=== PATIENT | female | born 1945 | race Caucasian/White ===

== ENCOUNTER 2017-08-15 20:46 | Inpatient (IN) | payer MEDICARE, OTHER ==
[2017-08-15 21:36] LABS: BASO % 0.2 % (0.0-1.0); HEMATOCRIT 36.3 % (36.0-47.0); HEMOGLOBIN 11.8 g/dl (12.0-16.0); IMMATURE GRANULOCYTE # 0.1 10^3/uL (0-0); IMMATURE GRANULOCYTE % 0.5 % (0-0); LYMPH # 0.4 10^3/uL (1.5-4.5); LYMPH % 2.1 % (24.0-44.0); MEAN CORPUSCULAR HEMOGLOBIN 29.1 pg (27.0-33.0); MEAN CORPUSCULAR HGB CONC 32.5 g/dl (32.0-36.5); MEAN CORPUSCULAR VOLUME 89.6 fl (80.0-96.0); MONO # 0.9 10^3/uL (0.0-0.8); MONO % 4.6 % (0.0-5.0); NEUTROPHILS # 17.5 10^3/uL (1.8-7.7); NEUTROPHILS % 92.6 % (36.0-66.0); PLATELET COUNT, AUTOMATED 337 10^3/uL (150-450); RED BLOOD COUNT 4.05 10^6/uL (4.00-5.40); RED CELL DISTRIBUTION WIDTH 13.3 % (11.5-14.5); WHITE BLOOD COUNT 18.9 10^3/uL (4.0-10.0)
[2017-08-15 21:43] LABS: ANION GAP 11 MEQ/L (8-16); BLOOD UREA NITROGEN 24 MG/DL (7-18); CALCIUM LEVEL 8.7 MG/DL (8.8-10.2); CARBON DIOXIDE LEVEL 24 MEQ/L (21-32); CHLORIDE LEVEL 104 MEQ/L (98-107); CPK CREATINE PHOSPHOKINASE 196 U/L (26-192); CREATININE FOR GFR 1.16 MG/DL (0.55-1.02); GLUCOSE, FASTING 118 MG/DL (83-110); SODIUM LEVEL 139 MEQ/L (136-145); T UPTAKE 37 % (30-39); THYROXINE (T4) 10.9 UG/DL (4.5-12.0)
[2017-08-15 21:48] LABS: CK-MB VALUE MASS 6.5 NG/ML (0.0-3.6); MB/CK RELATIVE INDEX 3.31 (< OR =4); NT-PRO BNP 7436 PG/ML (<125)
[2017-08-15 22:14] LABS: ABG BASE EXCESS -2.9 (-2.0-2.0); ABG HCO3 20.9 MEQ/L (22.0-26.0); ABG O2 SATURATION 90.6 % (95.0-99.0); ABG PARTIAL PRESSURE CO2 33.3 mmHg (35.0-45.0); ABG PARTIAL PRESSURE O2 61.4 mmHg (75.0-100.0); ABG STANDARD HCO3 21.9 MEQ/L (22.0-26.0); ABG TOTAL CO2 21.9 MEQ/L (23.0-31.0); ABG pH (ARTERIAL) 7.416 UNITS (7.350-7.450)
[2017-08-15] MEDS: AZITHROMYCIN INJ 500 MG, VIAL MATE ADAPTER 1 EACH in D5W 250 ML IV (22:15)
[2017-08-15] MEDS: DILUENT IV (22:15)
[2017-08-15] MEDS: CEFUROXIME SODIUM IV (22:15)
[2017-08-15 22:40] LABS: LACTIC ACID SEPSIS PROTOCOL 2.7 MMOL/L (0.4-2.0)
[2017-08-16] MEDS: NS 1,000 ML IV ×2 (00:22→09:09)
[2017-08-16] MEDS: ACETAMINOPHEN TAB 650MG DOSE (2X325MG) PO (00:39)
[2017-08-16] MEDS: CEFTRIAXONE SOD 1 GM in APPROPRIATE DILUENT 1 EA IV (05:17)
[2017-08-16 06:35] LABS: BASO # 0.1 10^3/uL (0.0-0.2); BASO % 0.6 % (0.0-1.0); EOS # 0.1 10^3/uL (0.0-0.50); EOS % 0.9 % (0.0-3.0); HEMATOCRIT 29.9 % (36.0-47.0); IMMATURE GRANULOCYTE % 0.4 % (0-0); LYMPH # 1.2 10^3/uL (1.5-4.5); LYMPH % 14.4 % (24.0-44.0); MEAN CORPUSCULAR HEMOGLOBIN 29.6 pg (27.0-33.0); MEAN CORPUSCULAR HGB CONC 33.4 g/dl (32.0-36.5); MEAN CORPUSCULAR VOLUME 88.5 fl (80.0-96.0); MONO # 0.8 10^3/uL (0.0-0.8); MONO % 9.3 % (0.0-5.0); NEUTROPHILS # 6.1 10^3/uL (1.8-7.7); NEUTROPHILS % 74.4 % (36.0-66.0); PLATELET COUNT, AUTOMATED 266 10^3/uL (150-450); RED BLOOD COUNT 3.38 10^6/uL (4.00-5.40); RED CELL DISTRIBUTION WIDTH 13.3 % (11.5-14.5); WHITE BLOOD COUNT 8.2 10^3/uL (4.0-10.0)
[2017-08-16 06:54] LABS: ANION GAP 7 MEQ/L (8-16); BLOOD UREA NITROGEN 22 MG/DL (7-18); CALCIUM LEVEL 8.4 MG/DL (8.8-10.2); CARBON DIOXIDE LEVEL 25 MEQ/L (21-32); CHLORIDE LEVEL 108 MEQ/L (98-107); CREATININE FOR GFR 0.86 MG/DL (0.55-1.02); GLOMERULAR FILTRATION RATE > 60.0 (>39); GLUCOSE, FASTING 77 MG/DL (83-110); SODIUM LEVEL 140 MEQ/L (136-145)
[2017-08-16] MEDS: ENOXAPARIN 40 MG/0.4 ML SYRINGE (J1650) SC (09:08)
[2017-08-16] MEDS: MAG SULF 1GM/100ML (MAG RUN) 1 GM in APPROPRIATE DILUENT 1 EA IV (18:30)
[2017-08-16] MEDS ORDERED: MAGNESIUM SULFATE 1 GM/100 ML D5W BAG (10MG/ML) (J3475) As Ordered (18:30)
[2017-08-16] MEDS ORDERED: FUROSEMIDE 20 MG/2 ML VIAL (J1940) As Ordered (18:30)
[2017-08-16 18:45] LABS: ABG BASE EXCESS -7.9 (-2.0-2.0); ABG HCO3 21.6 MEQ/L (22.0-26.0); ABG O2 SATURATION 84.8 % (95.0-99.0); ABG PARTIAL PRESSURE O2 65.5 mmHg (75.0-100.0); ABG STANDARD HCO3 17.9 MEQ/L (22.0-26.0); ABG TOTAL CO2 23.5 MEQ/L (23.0-31.0)
[2017-08-16] MEDS: FUROSEMIDE 40 MG/4 ML VIAL (J1940) IV ×3 (18:45→23:52)
[2017-08-16] MEDS: NITROGLYCERIN 2% OINT 1 GM *U/D* PKT TOP (18:45)
[2017-08-16 18:47] LABS: ABG PARTIAL PRESSURE CO2 62.6 mmHg (35.0-45.0); ABG pH (ARTERIAL) 7.156 UNITS (7.350-7.450)
[2017-08-16] MEDS ORDERED: NITROGLYCERIN 2% OINT 1 GM *U/D* PKT As Ordered (18:50)
[2017-08-16 19:02] LABS: BASO # 0.1 10^3/uL (0.0-0.2); BASO % 0.8 % (0.0-1.0); EOS # 0.1 10^3/uL (0.0-0.50); EOS % 1.2 % (0.0-3.0); HEMATOCRIT 40.4 % (36.0-47.0); IMMATURE GRANULOCYTE % 0.3 % (0-0); LYMPH # 2.8 10^3/uL (1.5-4.5); LYMPH % 24.5 % (24.0-44.0); MEAN CORPUSCULAR HEMOGLOBIN 29.3 pg (27.0-33.0); MEAN CORPUSCULAR HGB CONC 31.4 g/dl (32.0-36.5); MEAN CORPUSCULAR VOLUME 93.1 fl (80.0-96.0); MONO # 1.1 10^3/uL (0.0-0.8); MONO % 9.7 % (0.0-5.0); NEUTROPHILS # 7.3 10^3/uL (1.8-7.7); NEUTROPHILS % 63.5 % (36.0-66.0); PLATELET COUNT, AUTOMATED 357 10^3/uL (150-450); RED BLOOD COUNT 4.34 10^6/uL (4.00-5.40); RED CELL DISTRIBUTION WIDTH 13.6 % (11.5-14.5); WHITE BLOOD COUNT 11.5 10^3/uL (4.0-10.0)
[2017-08-16 19:08] LABS: HEMOGLOBIN 12.7 g/dl (12.0-16.0)
[2017-08-16 19:30] LABS: ESTIMATED AVERAGE GLUCOSE 131 MG/DL (60-110); HEMOGLOBIN A1c 6.2 %
[2017-08-16 19:37] LABS: MAGNESIUM LEVEL 2.6 MG/DL (1.8-2.4)
[2017-08-16 19:37] LABS: C REACTIVE PROTEIN QUANTITATIV 1.13 MG/DL (0.00-0.30)
[2017-08-16 19:42] LABS: ALBUMIN 3.4 GM/DL (3.2-5.2); ALBUMIN/GLOBULIN RATIO 0.74 (1.00-1.93); ALKALINE PHOSPHATASE 119 U/L (45-117); ALT/SGPT 48 U/L (12-78); ANION GAP 9 MEQ/L (8-16); AST/SGOT 50 U/L (7-37); BILIRUBIN,TOTAL 0.3 MG/DL (0.2-1.0); BLOOD UREA NITROGEN 24 MG/DL (7-18); CALCIUM LEVEL 8.5 MG/DL (8.8-10.2); CARBON DIOXIDE LEVEL 24 MEQ/L (21-32); CHLORIDE LEVEL 108 MEQ/L (98-107); CK-MB VALUE MASS 4.9 NG/ML (0.0-3.6); CPK CREATINE PHOSPHOKINASE 229 U/L (26-192); CREATININE FOR GFR 1.28 MG/DL (0.55-1.02); GLOMERULAR FILTRATION RATE 43.8 (>39); GLUCOSE, FASTING 231 MG/DL (83-110); MB/CK RELATIVE INDEX 2.13 (< OR =4); POTASSIUM SERUM 4.4 MEQ/L (3.5-5.1); SODIUM LEVEL 141 MEQ/L (136-145); TROPONIN I 0.07 NG/ML (< 0.10)
[2017-08-16 20:08] LABS: BEDSIDE GLUCOSE 204 MG/DL (83-110)
[2017-08-16] MEDS: ETHANOL ALCOHOL 98% INJ 5ML (DEHYDRATED) NEB (20:10)
[2017-08-16 20:30] LABS: ABG BASE EXCESS -3.3 (-2.0-2.0); ABG O2 SATURATION 93.7 % (95.0-99.0); ABG PARTIAL PRESSURE CO2 40.3 mmHg (35.0-45.0); ABG PARTIAL PRESSURE O2 73.9 mmHg (75.0-100.0); ABG STANDARD HCO3 21.6 MEQ/L (22.0-26.0); ABG TOTAL CO2 23.2 MEQ/L (23.0-31.0); ABG pH (ARTERIAL) 7.354 UNITS (7.350-7.450)
[2017-08-16 20:33] LABS: NT-PRO BNP 11467 PG/ML (<125)
[2017-08-16 23:38] LABS: CK-MB VALUE MASS 3.9 NG/ML (0.0-3.6); CPK CREATINE PHOSPHOKINASE 198 U/L (26-192); MB/CK RELATIVE INDEX 1.96 (< OR =4); TROPONIN I 0.09 NG/ML (< 0.10)
[2017-08-16] MEDS: AZITHROMYCIN INJ 500 MG, VIAL MATE ADAPTER 1 EACH in D5W 250 ML IV (23:52)
[2017-08-17] MEDS: FUROSEMIDE 40 MG/4 ML VIAL (J1940) IV ×3 (04:00→16:00)
[2017-08-17 04:30] LABS: BASO % 0.4 % (0.0-1.0); EOS % 0.1 % (0.0-3.0); HEMATOCRIT 35.7 % (36.0-47.0); HEMOGLOBIN 11.8 g/dl (12.0-16.0); IMMATURE GRANULOCYTE % 0.3 % (0-0); LYMPH # 0.5 10^3/uL (1.5-4.5); LYMPH % 5.1 % (24.0-44.0); MEAN CORPUSCULAR HEMOGLOBIN 29.3 pg (27.0-33.0); MEAN CORPUSCULAR HGB CONC 33.1 g/dl (32.0-36.5); MEAN CORPUSCULAR VOLUME 88.6 fl (80.0-96.0); MONO # 0.6 10^3/uL (0.0-0.8); MONO % 6.3 % (0.0-5.0); NEUTROPHILS # 8.3 10^3/uL (1.8-7.7); NEUTROPHILS % 87.8 % (36.0-66.0); PLATELET COUNT, AUTOMATED 315 10^3/uL (150-450); RED BLOOD COUNT 4.03 10^6/uL (4.00-5.40); RED CELL DISTRIBUTION WIDTH 13.3 % (11.5-14.5); WHITE BLOOD COUNT 9.4 10^3/uL (4.0-10.0)
[2017-08-17 04:50] LABS: ALBUMIN 3.2 GM/DL (3.2-5.2); ALBUMIN/GLOBULIN RATIO 0.73 (1.00-1.93); ALKALINE PHOSPHATASE 105 U/L (45-117); ALT/SGPT 58 U/L (12-78); ANION GAP 9 MEQ/L (8-16); AST/SGOT 53 U/L (7-37); BILIRUBIN,TOTAL 0.4 MG/DL (0.2-1.0); BLOOD UREA NITROGEN 22 MG/DL (7-18); CALCIUM LEVEL 8.2 MG/DL (8.8-10.2); CARBON DIOXIDE LEVEL 28 MEQ/L (21-32); CHLORIDE LEVEL 104 MEQ/L (98-107); CHOLESTEROL LEVEL 177 MG/DL (< 200); CHOLESTEROL LEVEL 177 MG/DL (<200); CHOLESTEROL RISK RATIO 1.718 (<5); CPK CREATINE PHOSPHOKINASE 271 U/L (26-192); CREATININE FOR GFR 1.09 MG/DL (0.55-1.02); GLOMERULAR FILTRATION RATE 52.7 (>39); GLUCOSE, FASTING 113 MG/DL (83-110); HDL CHOLESTEROL 103 MG/DL (>40); LDH LACTATE DEHYDROGENASE 201 U/L (84-246); NON-HDL-C 74 MG/DL; PHOSPHORUS LEVEL 3.8 MG/DL (2.5-4.9); POTASSIUM SERUM 3.5 MEQ/L (3.5-5.1); SODIUM LEVEL 141 MEQ/L (136-145); TOTAL PROTEIN 7.6 GM/DL (6.4-8.2); TRIGLYCERIDES LEVEL 80 MG/DL (<150); TROPONIN I 0.07 NG/ML (< 0.10)
[2017-08-17 04:51] LABS: CK-MB VALUE MASS 8.1 NG/ML (0.0-3.6); MB/CK RELATIVE INDEX 2.98 (< OR =4)
[2017-08-17] MEDS: CEFTRIAXONE SOD 1 GM in APPROPRIATE DILUENT 1 EA IV (05:29)
[2017-08-17 07:20] LABS: ABG BASE EXCESS -0.5 (-2.0-2.0); ABG HCO3 22.3 MEQ/L (22.0-26.0); ABG O2 SATURATION 96.1 % (95.0-99.0); ABG PARTIAL PRESSURE O2 82.1 mmHg (75.0-100.0); ABG TOTAL CO2 23.3 MEQ/L (23.0-31.0); ABG pH (ARTERIAL) 7.475 UNITS (7.350-7.450)
[2017-08-17] MEDS: ENOXAPARIN 40 MG/0.4 ML SYRINGE (J1650) SC (09:07)
[2017-08-17 17:43] LABS: ANION GAP 8 MEQ/L (8-16); BLOOD UREA NITROGEN 20 MG/DL (7-18); CALCIUM LEVEL 8.3 MG/DL (8.8-10.2); CARBON DIOXIDE LEVEL 29 MEQ/L (21-32); CHLORIDE LEVEL 105 MEQ/L (98-107); GLOMERULAR FILTRATION RATE > 60.0 (>39); GLUCOSE, FASTING 100 MG/DL (83-110); POTASSIUM SERUM 3.4 MEQ/L (3.5-5.1); SODIUM LEVEL 142 MEQ/L (136-145)
[2017-08-17] MEDS: POTASSIUM CHLORIDE 10 MEQ SR TABLET PO (20:50)
[2017-08-17] MEDS: AZITHROMYCIN INJ 500 MG, VIAL MATE ADAPTER 1 EACH in D5W 250 ML IV (22:22)
[2017-08-18 04:26] LABS: BASO # 0.1 10^3/uL (0.0-0.2); BASO % 0.7 % (0.0-1.0); EOS # 0.2 10^3/uL (0.0-0.50); EOS % 1.9 % (0.0-3.0); HEMATOCRIT 32.7 % (36.0-47.0); HEMOGLOBIN 10.7 g/dl (12.0-16.0); IMMATURE GRANULOCYTE % 0.3 % (0-0); LYMPH # 1.2 10^3/uL (1.5-4.5); LYMPH % 13.5 % (24.0-44.0); MEAN CORPUSCULAR HEMOGLOBIN 29.2 pg (27.0-33.0); MEAN CORPUSCULAR HGB CONC 32.7 g/dl (32.0-36.5); MEAN CORPUSCULAR VOLUME 89.3 fl (80.0-96.0); MONO % 10.7 % (0.0-5.0); NEUTROPHILS # 6.6 10^3/uL (1.8-7.7); NEUTROPHILS % 72.9 % (36.0-66.0); PLATELET COUNT, AUTOMATED 281 10^3/uL (150-450); RED BLOOD COUNT 3.66 10^6/uL (4.00-5.40); RED CELL DISTRIBUTION WIDTH 13.2 % (11.5-14.5); WHITE BLOOD COUNT 9.1 10^3/uL (4.0-10.0)
[2017-08-18 04:43] LABS: ALBUMIN 2.7 GM/DL (3.2-5.2); ALBUMIN/GLOBULIN RATIO 0.64 (1.00-1.93); ALKALINE PHOSPHATASE 94 U/L (45-117); ALT/SGPT 44 U/L (12-78); ANION GAP 8 MEQ/L (8-16); AST/SGOT 47 U/L (7-37); BILIRUBIN,TOTAL 0.5 MG/DL (0.2-1.0); BLOOD UREA NITROGEN 15 MG/DL (7-18); CALCIUM LEVEL 8.1 MG/DL (8.8-10.2); CARBON DIOXIDE LEVEL 27 MEQ/L (21-32); CHLORIDE LEVEL 105 MEQ/L (98-107); CHOLESTEROL LEVEL 154 MG/DL (< 200); CPK CREATINE PHOSPHOKINASE 781 U/L (26-192); CREATININE FOR GFR 0.76 MG/DL (0.55-1.02); GLOMERULAR FILTRATION RATE > 60.0 (>39); GLUCOSE, FASTING 94 MG/DL (83-110); LDH LACTATE DEHYDROGENASE 189 U/L (84-246); PHOSPHORUS LEVEL 2.8 MG/DL (2.5-4.9); POTASSIUM SERUM 3.6 MEQ/L (3.5-5.1); SODIUM LEVEL 140 MEQ/L (136-145); TOTAL PROTEIN 6.9 GM/DL (6.4-8.2); TRIGLYCERIDES LEVEL 124 MG/DL (<150)
[2017-08-18] MEDS: CEFTRIAXONE SOD 1 GM in APPROPRIATE DILUENT 1 EA IV (05:52)
[2017-08-18] MEDS: FUROSEMIDE 40 MG/4 ML VIAL (J1940) IV (09:00)
[2017-08-18] MEDS: ENOXAPARIN 40 MG/0.4 ML SYRINGE (J1650) SC (09:28)
[2017-08-18] MEDS: FUROSEMIDE 20 MG/2 ML VIAL (J1940) IV ×2 (09:30→17:11)
[2017-08-18] MEDS: RAMIPRIL 1.25 MG CAP PO (12:43)
[2017-08-18] MEDS: AZITHROMYCIN INJ 500 MG, VIAL MATE ADAPTER 1 EACH in D5W 250 ML IV (23:49)
[2017-08-19 04:37] LABS: BASO # 0.1 10^3/uL (0.0-0.2); BASO % 0.6 % (0.0-1.0); EOS # 0.2 10^3/uL (0.0-0.50); EOS % 2.8 % (0.0-3.0); HEMATOCRIT 34.7 % (36.0-47.0); HEMOGLOBIN 11.2 g/dl (12.0-16.0); IMMATURE GRANULOCYTE % 0.3 % (0-0); LYMPH # 1.3 10^3/uL (1.5-4.5); LYMPH % 15.9 % (24.0-44.0); MEAN CORPUSCULAR HEMOGLOBIN 28.2 pg (27.0-33.0); MEAN CORPUSCULAR HGB CONC 32.3 g/dl (32.0-36.5); MEAN CORPUSCULAR VOLUME 87.4 fl (80.0-96.0); MONO # 0.8 10^3/uL (0.0-0.8); MONO % 10.2 % (0.0-5.0); NEUTROPHILS # 5.6 10^3/uL (1.8-7.7); NEUTROPHILS % 70.2 % (36.0-66.0); PLATELET COUNT, AUTOMATED 337 10^3/uL (150-450); RED BLOOD COUNT 3.97 10^6/uL (4.00-5.40); RED CELL DISTRIBUTION WIDTH 13.2 % (11.5-14.5); WHITE BLOOD COUNT 7.9 10^3/uL (4.0-10.0)
[2017-08-19 05:01] LABS: ALBUMIN 2.9 GM/DL (3.2-5.2); ALBUMIN/GLOBULIN RATIO 0.69 (1.00-1.93); ALKALINE PHOSPHATASE 95 U/L (45-117); ALT/SGPT 36 U/L (12-78); ANION GAP 9 MEQ/L (8-16); AST/SGOT 29 U/L (7-37); BILIRUBIN,TOTAL 0.5 MG/DL (0.2-1.0); BLOOD UREA NITROGEN 18 MG/DL (7-18); CALCIUM LEVEL 8.4 MG/DL (8.8-10.2); CARBON DIOXIDE LEVEL 29 MEQ/L (21-32); CHLORIDE LEVEL 103 MEQ/L (98-107); CHOLESTEROL LEVEL 169 MG/DL (< 200); CPK CREATINE PHOSPHOKINASE 321 U/L (26-192); CREATININE FOR GFR 0.78 MG/DL (0.55-1.02); GLOMERULAR FILTRATION RATE > 60.0 (>39); GLUCOSE, FASTING 96 MG/DL (83-110); LDH LACTATE DEHYDROGENASE 172 U/L (84-246); MAGNESIUM LEVEL 2.1 MG/DL (1.8-2.4); PHOSPHORUS LEVEL 4.1 MG/DL (2.5-4.9); POTASSIUM SERUM 3.4 MEQ/L (3.5-5.1); SODIUM LEVEL 141 MEQ/L (136-145); TOTAL PROTEIN 7.1 GM/DL (6.4-8.2); TRIGLYCERIDES LEVEL 85 MG/DL (<150)
[2017-08-19] MEDS: CEFTRIAXONE SOD 1 GM in APPROPRIATE DILUENT 1 EA IV (05:45)
[2017-08-19] MEDS: ENOXAPARIN 40 MG/0.4 ML SYRINGE (J1650) SC (09:04)
[2017-08-19] MEDS: SPIRONOLACTONE 12.5MG PER 1/2 TABLET PO (09:04)
[2017-08-19] MEDS: FUROSEMIDE 20 MG/2 ML VIAL (J1940) IV (09:06)
[2017-08-19] MEDS: CARVedilol 3.125 MG TAB PO ×2 (09:06→20:55)
[2017-08-19] MEDS: RAMIPRIL 1.25 MG CAP PO (12:10)
[2017-08-19] MEDS: AZITHROMYCIN INJ 500 MG, VIAL MATE ADAPTER 1 EACH in D5W 250 ML IV (23:10)
[2017-08-20 05:06] LABS: BASO # 0.1 10^3/uL (0.0-0.2); EOS # 0.3 10^3/uL (0.0-0.50); EOS % 4.8 % (0.0-3.0); HEMATOCRIT 32.7 % (36.0-47.0); HEMOGLOBIN 10.6 g/dl (12.0-16.0); IMMATURE GRANULOCYTE % 0.3 % (0-0); LYMPH # 1.2 10^3/uL (1.5-4.5); LYMPH % 17.8 % (24.0-44.0); MEAN CORPUSCULAR HEMOGLOBIN 28.4 pg (27.0-33.0); MEAN CORPUSCULAR HGB CONC 32.4 g/dl (32.0-36.5); MEAN CORPUSCULAR VOLUME 87.7 fl (80.0-96.0); MONO # 0.7 10^3/uL (0.0-0.8); NEUTROPHILS # 4.5 10^3/uL (1.8-7.7); NEUTROPHILS % 66.1 % (36.0-66.0); PLATELET COUNT, AUTOMATED 339 10^3/uL (150-450); RED BLOOD COUNT 3.73 10^6/uL (4.00-5.40); RED CELL DISTRIBUTION WIDTH 13.1 % (11.5-14.5); WHITE BLOOD COUNT 6.8 10^3/uL (4.0-10.0)
[2017-08-20] MEDS: CEFTRIAXONE SOD 1 GM in APPROPRIATE DILUENT 1 EA IV (05:24)
[2017-08-20 05:26] LABS: ANION GAP 8 MEQ/L (8-16); BLOOD UREA NITROGEN 20 MG/DL (7-18); CALCIUM LEVEL 8.9 MG/DL (8.8-10.2); CARBON DIOXIDE LEVEL 29 MEQ/L (21-32); CHLORIDE LEVEL 102 MEQ/L (98-107); CREATININE FOR GFR 0.74 MG/DL (0.55-1.02); GLOMERULAR FILTRATION RATE > 60.0 (>39); GLUCOSE, FASTING 93 MG/DL (83-110); POTASSIUM SERUM 3.4 MEQ/L (3.5-5.1); SODIUM LEVEL 139 MEQ/L (136-145)
[2017-08-20] MEDS: POTASSIUM CHLORIDE 10 MEQ SR TABLET PO (08:49)
[2017-08-20] MEDS: CARVedilol 3.125 MG TAB PO ×2 (08:50→20:51)
[2017-08-20] MEDS: FUROSEMIDE 20 MG/2 ML VIAL (J1940) IV (08:50)
[2017-08-20] MEDS: ENOXAPARIN 40 MG/0.4 ML SYRINGE (J1650) SC (08:50)
[2017-08-20] MEDS: SPIRONOLACTONE 25 MG TAB PO (08:50)
[2017-08-20] MEDS: RAMIPRIL 1.25 MG CAP PO (14:55)
[2017-08-20] MEDS: AZITHROMYCIN INJ 500 MG, VIAL MATE ADAPTER 1 EACH in D5W 250 ML IV (22:49)
[2017-08-21 05:18] LABS: BASO # 0.1 10^3/uL (0.0-0.2); EOS # 0.4 10^3/uL (0.0-0.50); EOS % 5.3 % (0.0-3.0); HEMATOCRIT 32.8 % (36.0-47.0); HEMOGLOBIN 10.8 g/dl (12.0-16.0); IMMATURE GRANULOCYTE % 0.1 % (0-0); LYMPH # 1.2 10^3/uL (1.5-4.5); LYMPH % 16.4 % (24.0-44.0); MEAN CORPUSCULAR HEMOGLOBIN 29.3 pg (27.0-33.0); MEAN CORPUSCULAR HGB CONC 32.9 g/dl (32.0-36.5); MEAN CORPUSCULAR VOLUME 89.1 fl (80.0-96.0); MONO # 0.6 10^3/uL (0.0-0.8); MONO % 8.4 % (0.0-5.0); NEUTROPHILS # 4.9 10^3/uL (1.8-7.7); NEUTROPHILS % 68.8 % (36.0-66.0); PLATELET COUNT, AUTOMATED 314 10^3/uL (150-450); RED BLOOD COUNT 3.68 10^6/uL (4.00-5.40); WHITE BLOOD COUNT 7.1 10^3/uL (4.0-10.0)
[2017-08-21 05:40] LABS: ANION GAP 7 MEQ/L (8-16); BLOOD UREA NITROGEN 22 MG/DL (7-18); CARBON DIOXIDE LEVEL 29 MEQ/L (21-32); CHLORIDE LEVEL 102 MEQ/L (98-107); CREATININE FOR GFR 0.76 MG/DL (0.55-1.02); GLOMERULAR FILTRATION RATE > 60.0 (>39); GLUCOSE, FASTING 87 MG/DL (83-110); POTASSIUM SERUM 3.5 MEQ/L (3.5-5.1); SODIUM LEVEL 138 MEQ/L (136-145)
[2017-08-21] MEDS: CEFTRIAXONE SOD 1 GM in APPROPRIATE DILUENT 1 EA IV (06:00)
[2017-08-21] MEDS: ENOXAPARIN 40 MG/0.4 ML SYRINGE (J1650) SC (09:00)
[2017-08-21] MEDS: SPIRONOLACTONE 25 MG TAB PO (09:03)
[2017-08-21] MEDS: CARVedilol 3.125 MG TAB PO (09:15)
[2017-08-21] MEDS: FUROSEMIDE 20 MG/2 ML VIAL (J1940) IV (09:16)
[2017-08-21] MEDS: RAMIPRIL 1.25 MG CAP PO (11:47)
== END 2017-08-21 17:11 | disposition home health service (06) | DRG 193 ==
LOC: M MSPAV 08-16 00:07 → M ED 20:46 → M ICU 08-16 18:39 → M ED INP 22:49
DX: J18.9 Pneumonia, unspecified organism (principal); I50.23 Acute on chronic systolic (congestive) heart failure; J96.01 Acute respiratory failure with hypoxia; J96.02 Acute respiratory failure with hypercapnia; N17.9 Acute kidney failure, unspecified; Q21.1 Atrial septal defect; I42.9 Cardiomyopathy, unspecified; Z87.891 Personal history of nicotine dependence; E74.39 Other disorders of intestinal carbohydrate absorption

== ENCOUNTER → 2017-09-17 | Outpatient (CLI) | payer MEDICARE ==
[2017-09-17 17:45] LABS: BASO # 0.1 10^3/uL (0.0-0.2); BASO % 0.8 % (0.0-1.0); EOS # 0.1 10^3/uL (0.0-0.50); EOS % 2.2 % (0.0-3.0); HEMATOCRIT 38.8 % (36.0-47.0); HEMOGLOBIN 12.4 g/dl (12.0-16.0); IMMATURE GRANULOCYTE % 0.3 % (0-0); LYMPH # 1.2 10^3/uL (1.5-4.5); LYMPH % 18.5 % (24.0-44.0); MEAN CORPUSCULAR HEMOGLOBIN 28.1 pg (27.0-33.0); MEAN CORPUSCULAR VOLUME 87.8 fl (80.0-96.0); MONO # 0.7 10^3/uL (0.0-0.8); MONO % 11.1 % (0.0-5.0); NEUTROPHILS # 4.3 10^3/uL (1.8-7.7); NEUTROPHILS % 67.1 % (36.0-66.0); PLATELET COUNT, AUTOMATED 192 10^3/uL (150-450); RED BLOOD COUNT 4.42 10^6/uL (4.00-5.40); RED CELL DISTRIBUTION WIDTH 13.6 % (11.5-14.5); WHITE BLOOD COUNT 6.4 10^3/uL (4.0-10.0)
[2017-09-17 18:02] LABS: ALBUMIN 3.9 GM/DL (3.2-5.2); ALBUMIN/GLOBULIN RATIO 0.87 (1.00-1.93); ALKALINE PHOSPHATASE 91 U/L (45-117); ALT/SGPT 17 U/L (12-78); ANION GAP 7 MEQ/L (8-16); AST/SGOT 18 U/L (7-37); BILIRUBIN,TOTAL 0.5 MG/DL (0.2-1.0); BLOOD UREA NITROGEN 16 MG/DL (7-18); CALCIUM LEVEL 9.6 MG/DL (8.8-10.2); CARBON DIOXIDE LEVEL 29 MEQ/L (21-32); CHLORIDE LEVEL 103 MEQ/L (98-107); CREATININE FOR GFR 0.95 MG/DL (0.55-1.30); GLOMERULAR FILTRATION RATE > 60.0 (>39); GLUCOSE, FASTING 99 MG/DL (70-100); NT-PRO BNP 4880 PG/ML (<125); SODIUM LEVEL 139 MEQ/L (136-145); TOTAL PROTEIN 8.4 GM/DL (6.4-8.2)
== END ==
LOC: M WUC 14:14
DX: I50.20 Unspecified systolic (congestive) heart failure (principal)
CPT/HCPCS: 80053

== ENCOUNTER → 2018-12-03 | Outpatient (CLI) | payer MEDICARE ==
[~2018-12-03] MED LIST: ALDA25TA2 PO; ALTA1CAP PO; ASPI-1 PO; AZIT500T2 PO; CARV3.12 PO; CEFD1CAP8 PO; IBUPOTC PO; VITMTA PO
[2018-12-03 16:57] LABS: ALBUMIN 3.9 GM/DL (3.2-5.2); ALT/SGPT 22 U/L (12-78); BILIRUBIN,TOTAL 0.3 MG/DL (0.2-1.0); BLOOD UREA NITROGEN 19 MG/DL (7-18); CALCIUM LEVEL 9.3 MG/DL (8.8-10.2); CARBON DIOXIDE LEVEL 30 MEQ/L (21-32); CHLORIDE LEVEL 102 MEQ/L (98-107); CREATININE FOR GFR 0.84 MG/DL (0.55-1.30); GLOMERULAR FILTRATION RATE > 60.0 (>39); GLUCOSE, FASTING 85 MG/DL (70-100); POTASSIUM SERUM 4.5 MEQ/L (3.5-5.1); SODIUM LEVEL 138 MEQ/L (136-145); TOTAL PROTEIN 8.2 GM/DL (6.4-8.2)
[2018-12-03 17:01] LABS: BASO # 0.1 10^3/uL (0.0-0.2); BASO % 0.8 % (0.0-1.0); EOS # 0.2 10^3/uL (0.0-0.50); EOS % 1.9 % (0.0-3.0); HEMATOCRIT 39.9 % (36.0-47.0); HEMOGLOBIN 12.9 g/dl (12.0-15.5); LYMPH # 1.3 10^3/uL (1.5-4.5); MEAN CORPUSCULAR HEMOGLOBIN 30.4 pg (27.0-33.0); MEAN CORPUSCULAR HGB CONC 32.3 g/dl (32.0-36.5); MEAN CORPUSCULAR VOLUME 93.9 fl (80.0-96.0); MONO # 0.8 10^3/uL (0.0-0.8); MONO % 9.7 % (0.0-5.0); NEUTROPHILS # 5.6 10^3/uL (1.8-7.7); NEUTROPHILS % 71.3 % (36.0-66.0); PLATELET COUNT, AUTOMATED 305 10^3/uL (150-450); RED BLOOD COUNT 4.25 10^6/uL (4.00-5.40); WHITE BLOOD COUNT 7.8 10^3/uL (4.0-10.0)
== END ==
LOC: M WUC 14:01
PROVIDERS: ATTEND Family Medicine
DX: I50.20 Unspecified systolic (congestive) heart failure (principal)

== ENCOUNTER → 2020-05-31 | Outpatient (CLI) | payer MEDICARE ==
[~2020-05-31] MED LIST changes: -AZIT500T2 PO; +AZIT500T5 PO
[2020-05-31 15:55] LABS: BASO # 0.1 10^3/uL (0.0-0.2); EOS # 0.1 10^3/uL (0.0-0.5); EOS % 1.8 % (0.0-3.0); HEMATOCRIT 42.3 % (36.0-47.0); HEMOGLOBIN 13.4 g/dl (12.0-15.5); LYMPH # 1.3 10^3/uL (1.5-5.0); MEAN CORPUSCULAR HEMOGLOBIN 30.4 pg (27.0-33.0); MEAN CORPUSCULAR HGB CONC 31.7 g/dl (32.0-36.5); MEAN CORPUSCULAR VOLUME 95.9 fl (80.0-96.0); MONO # 0.6 10^3/uL (0.0-0.8); MONO % 8.8 % (0.0-5.0); PLATELET COUNT, AUTOMATED 364 10^3/uL (150-450); RED BLOOD COUNT 4.41 10^6/uL (4.00-5.40); WHITE BLOOD COUNT 7.1 10^3/uL (4.0-10.0)
[2020-05-31 16:01] LABS: ALBUMIN 4.2 GM/DL (3.2-5.2); BILIRUBIN,TOTAL 0.5 MG/DL (0.2-1.0); CALCIUM LEVEL 10.6 MG/DL (8.8-10.2); CREATININE FOR GFR 0.99 MG/DL (0.55-1.30); GLOMERULAR FILTRATION RATE 58.4 (>39); POTASSIUM SERUM 4.3 MEQ/L (3.5-5.1); TOTAL PROTEIN 8.3 GM/DL (6.4-8.2)
== END ==
LOC: M WUC 12:04
PROVIDERS: ATTEND Family Medicine
DX: I50.20 Unspecified systolic (congestive) heart failure (principal)

== ENCOUNTER → 2020-08-26 | Outpatient (CLI) | payer MEDICARE ==
[2020-08-26 15:54] LABS: BLOOD UREA NITROGEN 22 MG/DL (7-18); CALCIUM LEVEL 10.5 MG/DL (8.8-10.2); CARBON DIOXIDE LEVEL 30 MEQ/L (21-32); CHLORIDE LEVEL 102 MEQ/L (98-107); CREATININE FOR GFR 0.95 MG/DL (0.55-1.30); GLOMERULAR FILTRATION RATE > 60.0 (>39); GLUCOSE, FASTING 96 MG/DL (70-100); POTASSIUM SERUM 4.5 MEQ/L (3.5-5.1); SODIUM LEVEL 137 MEQ/L (136-145)
[2020-08-26 15:58] LABS: PTH INTACT 30.9 PG/ML (18.5-88.0)
== END ==
LOC: M ADAMS 13:32
PROVIDERS: ATTEND Family Medicine
DX: E83.52 Hypercalcemia (principal); I50.20 Unspecified systolic (congestive) heart failure

== ENCOUNTER 2021-02-27 08:50 | Inpatient (IN) | payer MEDICARE ==
[~2021-02-27] VITALS: Ht 160 cm; Wt 53.2 kg
[2021-02-27] MEDS ORDERED: ACETAMINOPHEN 500 MG TAB PO ONE (10:00)
[2021-02-27] MEDS ORDERED: CYCLOBENZAPRINE 5MG TABLET PO ONE (10:00)
[2021-02-27] MEDS ORDERED: LIDOCAINE 5% (LIDODERM) PATCH TD ONE (10:00)
[2021-02-27] MEDS ORDERED: KETOROLAC 30 MG/ML 1ML VIAL IV ONE (10:00)
[2021-02-27] MEDS ORDERED: KETOROLAC 30 MG/ML 1ML VIAL IM ONE (10:05)
[2021-02-27] MEDS ORDERED: CARVedilol 3.125 MG TAB PO ONE (12:15)
[2021-02-27] MEDS ORDERED: SPIRONOLACTONE 25 MG TAB PO ONE (12:15)
[2021-02-27] MEDS ORDERED: traMADol 50 MG TAB PO ONE (12:15)
[2021-02-27] MEDS ORDERED: CARV3.12 PO (12:29)
[2021-02-27] MEDS ORDERED: SPIR-10 PO (12:29)
[2021-02-27] MEDS ORDERED: RAMI1CAP21 PO (12:29)
--- NOTE | 2021-02-27 13:16 | HPEPDOC ---
[facility] Medical History & Physical Date of Admission Feb 27, 2021 Date of Service: Feb 27, 2021 Attending Physician: RAJEEV SALCEDO MD MPH History and Physical CHIEF COMPLAINT: Back pain HISTORY OF PRESENT ILLNESS: Ms. Norton is a pleasant 75 year old female presenting with progressive left low back pain since lifting a heavy bag of birdseed 5 days prior to ED visit. She states that at the time she was lifting, she felt a twinge of low back pain that was slightly worse than her chronic mild sciatic pain and that it was fluctuating in intensity to the point where last night no position was comfortable and she was unable to ambulate due to the pain. 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 She denies fevers, chills, loss of bladder/bowels, decreased appetite, recent weight unexplained weight loss. PAST MEDICAL HISTORY: 1. CHF with severe systolic dysfunction. required life vest placement upon discharge several years ago. Has followed up with cardiology as outpatient. No recent echo for comparison at this time. 2. Cardiomyopathy - likely non-ischemic. 3. Severe mitral regurgitation. 4. Glucose intolerance 5. Pneumonia PAST SURGICAL HISTORY: None SOCIAL HISTORY: Marital status: Resides in: home by self with several cats Children: Son Employment: retired, worked admin at [employer] Tobacco use:Former smoker, quit ~10 years ago Ambulates with a cane or a single crutch FAMILY HISTORY: Non contributory ALLERGIES: Please see below. REVIEW OF SYSTEMS: A 10 point ROS was obtained and was unremarkable except as noted above. HOME MEDICATIONS: Please see below. PHYSICAL EXAMINATION: VITAL SIGNS: Reviewed, please see below CONSTITUTIONAL: Well appearing older female, lying in bed, NAD HEENT: MMM, EOMI CARDIOVASCULAR: RRR 3/6 systolic murmur RESPIRATORY: CTAB GASTROINTESTINAL: scaphoid abdomen, soft, non tender to palpation GENITOURINARY: No CVA tenderness to percussion SKIN: No rashes or lesions overlying area of pain MUSCULOSKELETAL: Unable to independently roll to side to get out of bed, markedly limited forwards bending, remainder of exam limited 2/2 pain however SLR is positive on the left. BERNARD and FADDIR equivocal 2/2 pain on left. NEUROLOGICAL: 5/5 dorsiflexion and plantarflexion bilaterally. No weakness of great toes bilaterally. Sensation intact bilaterally. Rectal exam deferred PSYCHIATRIC: Euthymic LABORATORY DATA: See below. IMAGING: Pending CT MICROBIOLOGY: Please see below. ASSESSMENT: Ms. Norton is a 75 year old female, independent at baseline presenting for progressive worsening of her chronic low back pain, exam concerning for posterior disc herniation and sciatica with CT pending. . PLAN: # Acute on chronic low back pain: Exam is limited, however no obvious red flag signs in setting of provoked worsening of chronic back pain. Due to difficulty with mobility at home 2/2 pain will admit for titration of pain medications and initiation of physical therapy. CT scan is pending. Could consider Ortho referral for pain block. Meds: Ultram 50mg PO BID Celebrex 200mg daily Consider Gabapentin QHS Lidoderm patch daily Physical therapy for mobilization Consider Ortho referral heat pack or ice pack PRN # History of severed systolic heart failure and cardiomyopathy: There are no recent studies related to these diagnoses and no indication on admission today that cardiac function is not at patient's baseline. Will continue her home medications and have low threshold for cardiac w/u. Meds: Coreg 3.125 BID Spironolactone 25mg daily Ramipril 1.25mg daily Dispo: Med/Surg Obs Diet: Cardiac DVT Prophy: Lovenox Consults: PT Discharge: Obs <2MN Vital Signs Vital Signs Date Time Temp Pulse Resp B/P (MAP) Pulse Ox O2 Delivery O2 Flow Rate FiO2 02/27/21 12:31 80 149/80 02/27/21 12:31 18 Room Air 02/27/21 09:02 97.7 Home Medications Scheduled Carvedilol (Carvedilol) 3.125 Mg Tablet, 3.125 MG PO BID Multivitamins (Thera M Plus Tablet) 1 Tab Tab, 1 TAB PO DAILY Ramipril (Ramipril) 1.25 Mg Capsule, 1.25 MG PO DAILY Spironolactone (Spironolactone) 25 Mg Tablet, 25 MG PO DAILY Allergies Coded Allergies: No Known Allergies (Unverified , 08/15/17) A-FIB/CHADSVASC A-FIB History Current/History of A-Fib/PAF?: No Current PO Anticoag Therapy: No Age/Risk Factor Scoring CHADSVASC: CHADSVASC Response (Comments) Value Age Risk Factor Age 65-74 years old 1 Gender Risk Factor Female 1 Hx of CHF Yes 1 Hx of HTN Yes 1 Hx of Stroke/TIA/or VTE No 0 Hx of Diabetes No 0 Hx of Vascular Disease No 0 Total 4 Treatment Treatment ordered: Other Other anticoagulant ordered: RAJEEV Manuel MD MPH Feb 27, 2021 13:02
[2021-02-27 13:47] LABS: BASO % 0.4 % (0.0-1.0); EOS % 0.3 % (0.0-3.0); HEMATOCRIT 40.8 % (36.0-47.0); HEMOGLOBIN 13.5 g/dl (12.0-15.5); LYMPH # 0.8 10^3/uL (1.5-5.0); LYMPH % 7.3 % (24.0-44.0); MEAN CORPUSCULAR HEMOGLOBIN 30.8 pg (27.0-33.0); MEAN CORPUSCULAR HGB CONC 33.1 g/dl (32.0-36.5); MEAN CORPUSCULAR VOLUME 93.2 fl (80.0-96.0); MONO # 0.9 10^3/uL (0.0-0.8); MONO % 7.6 % (2.0-8.0); NEUTROPHILS # 9.4 10^3/uL (1.5-8.5); PLATELET COUNT, AUTOMATED 314 10^3/uL (150-450); RED BLOOD COUNT 4.38 10^6/uL (4.00-5.40); WHITE BLOOD COUNT 11.1 10^3/uL (4.0-10.0)
--- NOTE | 2021-02-27 14:01 | REPVR ---
PROCEDURE INFORMATION: Exam: CT Lumbar Spine Without Contrast Exam date and time: 02/27/2021 1:13 PM Age: 75 years old Clinical indication: Other: Low back pain, L sciatica TECHNIQUE: Imaging protocol: Computed tomography images of the lumbar spine without contrast. Radiation optimization: All CT scans at this facility use at least one of these dose optimization techniques: automated exposure control; mA and/or kV adjustment per patient size (includes targeted exams where dose is matched to clinical indication); or iterative reconstruction. COMPARISON: No relevant prior studies available. FINDINGS: Vertebrae: There is 5 mm of anterolisthesis of L5 with respect to S1. Normal vertebral body alignment is otherwise preserved. There is mild superior endplate depression at L4 of indeterminate acuity. There is a nondisplaced sacral fracture at the S2 level of indeterminate acuity. L1-L2: There is radiodense material within the intervertebral disc space. There is shallow disc bulging. There is mild facet hypertrophy. The spinal canal and neural foramina are patent. L2-L3: There is shallow disc bulging. There is mild facet and ligamentous hypertrophy. The spinal canal and neural foramina are patent. L3-L4: There is diffuse disc bulging. There is moderate facet hypertrophy. There is mild bilateral neural foraminal narrowing. L4-L5: There is diffuse disc bulging. There is moderate facet hypertrophy. There is mild to moderate right and mild left neural foraminal narrowing. L5-S1: There is diffuse disc bulging/uncovering related to listhesis. There is moderate facet hypertrophy. There is moderate to severe right and moderate left neural foraminal narrowing. There is severe canal stenosis. Soft tissues: Unremarkable. IMPRESSION: 1. L4 superior endplate depression of indeterminate acuity. 2. Nondisplaced sacral fracture at the S2 level of indeterminate acuity. 3. Degenerative disc disease and spondylosis. At L5/S1, changes contribute to moderate to severe right and moderate left neural foraminal narrowing. Electronically signed by: Meaghan Urias On 02/27/2021 14:00:53 PM
[2021-02-27 14:15] LABS: ALBUMIN 3.4 GM/DL (3.2-5.2); BILIRUBIN,DIRECT 0.1 MG/DL (0.0-0.2); BILIRUBIN,TOTAL 0.5 MG/DL (0.2-1.0); CALCIUM LEVEL 9.4 MG/DL (8.8-10.2); GLOMERULAR FILTRATION RATE 57.7 (>39); POTASSIUM SERUM 4.2 MEQ/L (3.5-5.1); TOTAL PROTEIN 7.5 GM/DL (6.4-8.2)
[2021-02-27 16:40] VITALS: BP 128/60
[2021-02-27] MEDS: CelecoXIB (CeleBREX) 100 MG CAP PO SCH (16:56)
[2021-02-27] MEDS: MULTIVITAMINS/MINERALS THERAP 1 TAB PO SCH (16:57)
[2021-02-27] MEDS: ramipriL 1.25 MG CAP PO SCH (18:27)
[2021-02-27] MEDS ORDERED: **NOTE PATIENT COMMENT** MISC XX ONE (21:00)
[2021-02-27] MEDS: traMADol 50 MG TAB PO SCH (21:15)
[2021-02-27] MEDS: ENOXAPARIN 40MG/0.4ML SYRINGE (J1650 PER 10MG) SC SCH (21:15)
[2021-02-27] MEDS: CARVedilol 3.125 MG TAB PO SCH (21:19)
[2021-02-27 22:00] VITALS: BP 135/64
[2021-02-28 06:00] VITALS: BP 121/89
[2021-02-28] MEDS: MULTIVITAMINS/MINERALS THERAP 1 TAB PO SCH (08:10)
[2021-02-28] MEDS: CelecoXIB (CeleBREX) 100 MG CAP PO SCH (08:11)
[2021-02-28] MEDS: traMADol 50 MG TAB PO SCH ×2 (08:11→22:16)
[2021-02-28] MEDS: ramipriL 1.25 MG CAP PO SCH (08:11)
[2021-02-28] MEDS: SPIRONOLACTONE 25 MG TAB PO SCH (08:12)
[2021-02-28] MEDS: LIDOCAINE 5% (LIDODERM) PATCH TD SCH (08:12)
[2021-02-28] MEDS: CARVedilol 3.125 MG TAB PO SCH ×2 (08:12→22:18)
[2021-02-28 14:00] VITALS: BP 154/68
--- NOTE | 2021-02-28 18:23 | IPNPDOC ---
Date Seen The patient was seen on 02/28/21. Progress Note SUBJECTIVE: Patient complains of severe L. sided pain from buttock down entire leg. Reportedly has been refusing PT due to pain. Denies any other physical complaints. OBJECTIVE PHYSICAL EXAMINATION: VITAL SIGNS: Please see below. General: No acute distress at rest, Alert Eyes: Normal sclera, EOMI HENT: Atraumatic Cardiovascular: Normal rate, normal rhythm. Pulmonary: Clear to auscultation b/l, no wheezing GI: Soft, nontender, nondistended MSK: afraid to move LLE, unable to fully assess. Skin: Warm and dry Neuro: CN grossly intact. No focal deficits. Psych: oriented x 3 LABORATORY DATA, IMAGING STUDIES, MICROBIOLOGY: Please see below. ASSESSMENT AND PLAN: 1. Acute on chronic back pain - Worsened after lifting a heavy bag about 5 days prior to admission. - Lower back pain with pain in entire LLE. - CT lumbar spine with evidence of L4 endplate depression and nondisplaced sacral fracture at S2 with determinate acuity. Moderate to severe neural foraminal narrowing at L5/S1. - PT and OT eval and treat. - Pain control. - Consult to KRYSTYNA. Discussed with Dr. Amanda Olivo, CT images pushed over. Pending follow up discussion. - Will require > 2 midnight. make inpatient. 2. hx cardiomyopathy with HFrEF - c/w coreg, aldactone and ramipril. - euvolemic. DVT ppx: Lovenox Code status: Full code DISPOSITION: Pending, may need short term rehab. VS, I&O, 24H, Fishbone Vital Signs/I&O Vital Signs Date Time Temp Pulse Resp B/P (MAP) Pulse Ox O2 Delivery O2 Flow Rate FiO2 02/28/21 14:00 98.1 68 16 154/68 (96) 95 Room Air I&O- Last 24 Hours up to 6 AM 02/28/21 06:00 Intake Total 660 ml Output Total 0 ml Balance 660 ml EDGARDO DE DIOS MD Feb 28, 2021 18:23
[2021-02-28 22:00] VITALS: BP 148/65
[2021-02-28] MEDS: ENOXAPARIN 40MG/0.4ML SYRINGE (J1650 PER 10MG) SC SCH (22:16)
[2021-02-28] MEDS: **NOTE PATIENT COMMENT** MISC XX SCH (22:16)
[2021-03-01 05:38] VITALS: BP 149/66
[2021-03-01] MEDS: LIDOCAINE 5% (LIDODERM) PATCH TD SCH (09:37)
[2021-03-01] MEDS: SPIRONOLACTONE 25 MG TAB PO SCH (09:37)
[2021-03-01] MEDS: traMADol 50 MG TAB PO SCH (09:37)
[2021-03-01] MEDS: MULTIVITAMINS/MINERALS THERAP 1 TAB PO SCH (09:37)
[2021-03-01] MEDS: ramipriL 5 MG CAP PO SCH (09:38)
[2021-03-01] MEDS: CARVedilol 3.125 MG TAB PO SCH ×2 (09:38→22:23)
[2021-03-01] MEDS: CelecoXIB (CeleBREX) 100 MG CAP PO SCH (09:38)
[2021-03-01] MEDS ORDERED: MORPHINE 2 MG/ML 1ML VIAL (J2270) IV PRN (11:35)
[2021-03-01] MEDS: PERCOCET 5MG/325MG TAB PO PRN ×2 (11:52→22:23)
[2021-03-01 13:42] VITALS: BP 144/67
--- NOTE | 2021-03-01 18:52 | IPNPDOC ---
Date Seen The patient was seen on 03/01/21. Progress Note SUBJECTIVE: Patient complains of persistent pain and express anxiety about going home. There was a misunderstanding about PT clearance this AM and patient was somewhat upset but had been cleared out. Pain regimen adjusted from Tramadol to Percocet. Patient appeared more comfortable later in the afternoon. OBJECTIVE PHYSICAL EXAMINATION: VITAL SIGNS: Please see below. General: No acute distress at rest, Alert Eyes: Normal sclera, EOMI HENT: Atraumatic Cardiovascular: Normal rate, normal rhythm. Pulmonary: Clear to auscultation b/l, no wheezing GI: Soft, nontender, nondistended MSK: afraid to move LLE, unable to fully assess. Skin: Warm and dry Neuro: CN grossly intact. No focal deficits. Psych: oriented x 3 LABORATORY DATA, IMAGING STUDIES, MICROBIOLOGY: Please see below. ASSESSMENT AND PLAN: 1. Acute on chronic back pain - Worsened after lifting a heavy bag about 5 days prior to admission. - Lower back pain with pain in entire LLE. - CT lumbar spine with evidence of L4 endplate depression and nondisplaced sacral fracture at S2 with determinate acuity. Moderate to severe neural foraminal narrowing at L5/S1. - PT and OT eval and treat. - Pain control. Added Percocet today. - Consulted with Dr. Amanda Olivo, CT images pushed over. No surgery recommended at this time. c/w PT. 2. hx cardiomyopathy with HFrEF - c/w coreg, aldactone and ramipril. - euvolemic. DVT ppx: Lovenox Code status: Full code DISPOSITION: Pending, may need short term rehab. VS, I&O, 24H, Fishbone Vital Signs/I&O Vital Signs Date Time Temp Pulse Resp B/P (MAP) Pulse Ox O2 Delivery O2 Flow Rate FiO2 03/01/21 13:42 98.2 71 18 144/67 (92) 92 Room Air I&O- Last 24 Hours up to 6 AM 03/01/21 06:00 Intake Total 500 ml Output Total 0 ml Balance 500 ml EDGARDO DE DIOS MD Mar 01, 2021 18:52
[2021-03-01] MEDS: **NOTE PATIENT COMMENT** MISC XX SCH (21:00)
[2021-03-01 22:00] VITALS: BP 132/77
[2021-03-01] MEDS: ENOXAPARIN 40MG/0.4ML SYRINGE (J1650 PER 10MG) SC SCH (22:24)
[2021-03-02 06:00] VITALS: BP 139/64
[2021-03-02] MEDS: LIDOCAINE 5% (LIDODERM) PATCH TD SCH (08:25)
[2021-03-02] MEDS: PERCOCET 5MG/325MG TAB PO PRN ×2 (08:26→21:22)
[2021-03-02] MEDS: CelecoXIB (CeleBREX) 100 MG CAP PO SCH (08:26)
[2021-03-02] MEDS: SPIRONOLACTONE 25 MG TAB PO SCH (08:28)
[2021-03-02] MEDS: ramipriL 5 MG CAP PO SCH (08:28)
[2021-03-02] MEDS: CARVedilol 3.125 MG TAB PO SCH ×2 (08:28→21:21)
[2021-03-02] MEDS: MULTIVITAMINS/MINERALS THERAP 1 TAB PO SCH (08:28)
[2021-03-02 13:36] VITALS: BP 156/61
--- NOTE | 2021-03-02 18:23 | IPNPDOC ---
Text Note Date of Service The patient was seen on 03/02/21. NOTE SUBJECTIVE: Patient reports good pain control now and has used several Percocets for breakthrough pain. She was able to ambulate with physical therapy this afternoon. ARU potential is pending conversation with family. PHYSICAL EXAMINATION: VITAL SIGNS: Reviewed, please see below CONSTITUTIONAL: Well appearing older female, lying in bed, NAD HEENT: MMM, EOMI CARDIOVASCULAR: RRR 3/6 systolic murmur RESPIRATORY: CTAB GASTROINTESTINAL: scaphoid abdomen, soft, non tender to palpation GENITOURINARY: No CVA tenderness to percussion SKIN: No rashes or lesions overlying area of pain MUSCULOSKELETAL: Unchanged from prior NEUROLOGICAL: AOx3, no FND PSYCHIATRIC: Euthymic LABORATORY DATA: See below. IMAGING: No recent MICROBIOLOGY: Please see below. ASSESSMENT: Ms. Norton is a 75 year old female, independent at baseline presenting for progressive worsening of her chronic low back pain, exam concerning for posterior disc herniation and sciatica with CT scan showing no acute fracture. . PLAN: # Acute on chronic low back pain: Exam is limited, however no obvious red flag signs in setting of provoked worsening of chronic back pain. Due to difficulty with mobility at home 2/2 pain will admit for titration of pain medications and initiation of physical therapy. CT scan showed lumbar fracture of indeterminate age and KRYSTYNA Solorzano reported no surgical indication at this time. Patient is pending ARU evaluation. Meds: Celebrex 200mg daily Percocets PRN breakthrough pain Morphine PRN severe pain Lidoderm patch daily Physical therapy for mobilization heat pack or ice pack PRN # History of severed systolic heart failure and cardiomyopathy: There are no recent studies related to these diagnoses and no indication on admission today that cardiac function is not at patient's baseline. Will continue her home medications and have low threshold for cardiac w/u. Meds: Coreg 3.125 BID Spironolactone 25mg daily Ramipril 1.25mg daily Dispo: Med/Surg inpatient Diet: Cardiac DVT Prophy: Lovenox Consults: PT Discharge: pending possible transfer to [facility] VS,Fishbone, I+O VS, Fishbone, I+O Vital Signs Date Time Temp Pulse Resp B/P (MAP) Pulse Ox O2 Delivery O2 Flow Rate FiO2 03/02/21 13:36 98.0 66 18 156/61 (92) 95 Room Air I&O- Last 24 Hours up to 6 AM 03/02/21 06:00 Intake Total 390 ml Output Total 850 ml Balance -460 ml RAJEEV SALCEDO MD MPH Mar 02, 2021 18:23
[2021-03-02] MEDS: ENOXAPARIN 40MG/0.4ML SYRINGE (J1650 PER 10MG) SC SCH (21:22)
[2021-03-02] MEDS: **NOTE PATIENT COMMENT** MISC XX SCH (21:23)
[2021-03-02 22:00] VITALS: BP 141/65
[2021-03-03 06:00] VITALS: BP 126/69
[2021-03-03] MEDS: SPIRONOLACTONE 25 MG TAB PO SCH (08:43)
[2021-03-03] MEDS: ramipriL 5 MG CAP PO SCH (08:48)
[2021-03-03] MEDS: CelecoXIB (CeleBREX) 100 MG CAP PO SCH (08:49)
[2021-03-03] MEDS: MULTIVITAMINS/MINERALS THERAP 1 TAB PO SCH (08:49)
[2021-03-03] MEDS: CARVedilol 3.125 MG TAB PO SCH ×2 (08:49→20:46)
[2021-03-03] MEDS: LIDOCAINE 5% (LIDODERM) PATCH TD SCH (08:50)
[2021-03-03 14:00] VITALS: BP 152/71
[2021-03-03] MEDS ORDERED: SENOKOT S TAB PO ONE (15:15)
--- NOTE | 2021-03-03 18:06 | IPNPDOC ---
Text Note Date of Service The patient was seen on 03/03/21. NOTE Hospitalist Progress Note Subjective: The patient was reclined in bed when I entered the room. She is awake and alert and an excellent historian. She does continue to have low back and hip pain, but it seems to be manageable with her current regimen. At this time she knows that she is pending evaluation for the acute rehabilitation unit, but she is not entirely certain that she wishes to do this, she is still debating about just going home. It was also offered to her that she may be able to go home with PT and OT services as well. She reports that she will think about this and give her response once we have heard whether or not she can be admitted to the ARU. Objective: General: Awake, alert, oriented 3. Not in any acute distress. HEENT: Head normocephalic, atraumatic, sclera are nonicteric. Hearing is grossly intact to conversation. Respiratory: Clear to auscultation bilaterally with no wheezes, rales, or rhonchi. Cardiovascular: Regular rate and rhythm, with no rubs, gallops, or murmur. Abdomen: Soft, nontender, nondistended, no hepatosplenomegaly appreciated. Bowel sounds present. Extremities: 2+ pulses in the radial and dorsalis pedis bilaterally. No evidence of clubbing or cyanosis. Assessment: Acute on chronic low back pain History of severe systolic heart failure Cardiomyopathy Constipation Plan: We will start her on the FiberCon and give her a single dose of 2 tablets Seno dot-S today for constipation. Disposition planning is still underway. She may require inpatient rehabilitation. VS,Fishbone, I+O VS, Fishbone, I+O Vital Signs Date Time Temp Pulse Resp B/P (MAP) Pulse Ox O2 Delivery O2 Flow Rate FiO2 03/03/21 08:49 84 177/82 03/03/21 06:00 96.7 20 97 Room Air I&O- Last 24 Hours up to 6 AM 03/03/21 06:00 Intake Total 2000 ml Output Total 300 ml Balance 1700 ml VADIM URIAS DO Mar 03, 2021 13:35
[2021-03-03 20:10] VITALS: BP 121/76
[2021-03-03] MEDS: FIBER-CON 625 MG TAB PO SCH (20:46)
[2021-03-03] MEDS: **NOTE PATIENT COMMENT** MISC XX SCH (20:47)
[2021-03-03] MEDS: ENOXAPARIN 40MG/0.4ML SYRINGE (J1650 PER 10MG) SC SCH (20:47)
[2021-03-03] MEDS: PERCOCET 5MG/325MG TAB PO PRN (20:48)
[2021-03-04 06:00] VITALS: BP 129/59
[2021-03-04] MEDS ORDERED: ALTA1CAP3 PO (09:01)
[2021-03-04] MEDS ORDERED: CELE100C PO (09:01)
[2021-03-04] MEDS: SPIRONOLACTONE 25 MG TAB PO SCH (09:32)
[2021-03-04 09:33] VITALS: BP 129/59
[2021-03-04] MEDS: CARVedilol 3.125 MG TAB PO SCH (09:33)
[2021-03-04] MEDS: FIBER-CON 625 MG TAB PO SCH (09:33)
[2021-03-04] MEDS: ramipriL 5 MG CAP PO SCH (09:33)
[2021-03-04] MEDS: CelecoXIB (CeleBREX) 100 MG CAP PO SCH (09:33)
[2021-03-04] MEDS: MULTIVITAMINS/MINERALS THERAP 1 TAB PO SCH (09:33)
[2021-03-04] MEDS: LIDOCAINE 5% (LIDODERM) PATCH TD SCH (09:34)
--- NOTE | 2021-03-04 10:51 | DS.PDOC ---
Discharge Summary General Date of Admission Feb 28, 2021 at 18:28 Date of Discharge 03/04/2021 Discharge Summary PRIMARY CARE PHYSICIAN: Dr. Chacha MD ATTENDING AT TIME OF DISCHARGE: Dr. Vadim Urias, DISCHARGE DIAGNOS(E)S: Acute on chronic low back pain History of severe systolic heart failure Cardiomyopathy Constipation Congestive heart failure with reduced ejection fraction (systolic dysfunction) Cardiomyopathy Severe mitral regurgitation Glucose intolerance HPI & HOSPITAL COURSE: Patient presented to the emergency department with acute exacerbation of low back pain after heavy lifting a few days prior. The pain was unrelenting, therefore she presented for evaluation. Pain control was achieved throughout her hospital stay with Percocet, lidocaine patch, tramadol, Toradol, cycl obenzaprine, Celebrex. (Although not all of these were given at the same time, her pain regimen changed a few times while inpatient). She was evaluated by physical therapy and considered for placement to the acute rehab unit, however this was denied by insurance. At this time she feels as though she will be able to manage at home, and was offered home care services at this time, but she refused stating that if she felt as though she needed them she will request them from her PCP. PHYSICAL EXAMINATION ON DISCHARGE: GENERAL: Awake, alert, oriented x3. She is not appear to be in any acute distress at this time. CARDIOVASCULAR EXAMINATION: Regular rate and rhythm, with no rubs, gallops, or murmur. RESPIRATORY EXAMINATION: Clear to auscultation bilaterally with no wheezes, rales, or rhonchi. ABDOMINAL EXAMINATION: Soft, nontender, nondistended. Bowel sounds present. EXTREMITIES: No clubbing or edema noted. 2+ pulses in the radial bilaterally. DISPOSITION: Home DISCHARGE INSTRUCTIONS: Follow up with primary care physician within 7-14 days. Diet as tolerated. Recommend that she walk with crutches and walker per recommendations from physical therapy. If symptoms return, or if you experience worsening of your symptoms, please call your doctor or return to the emergency department. Vital Signs/I&Os Vital Signs Date Time Temp Pulse Resp B/P (MAP) Pulse Ox O2 Delivery O2 Flow Rate FiO2 03/04/21 09:33 129/59 03/04/21 09:33 69 03/04/21 06:00 97.1 16 96 Room Air I&O- Last 24 Hours up to 6 AM 7/24/21 06:00 Intake Total 760 ml Balance 760 ml Discharge Medications Scheduled Carvedilol (Carvedilol) 3.125 Mg Tablet, 3.125 MG PO BID, (Reported) Celecoxib (Celebrex) 100 Mg Capsule, 200 MG PO DAILY Multivitamins (Thera M Plus Tablet) 1 Tab Tab, 1 TAB PO DAILY, (Reported) Ramipril (Altace) 5 Mg Capsule, 5 MG PO DAILY Spironolactone (Spironolactone) 25 Mg Tablet, 25 MG PO DAILY, (Reported) Allergies Coded Allergies: No Known Allergies (Unverified , 08/15/17) VADIM URIAS DO Mar 04, 2021 10:51
== END 2021-03-04 11:40 | disposition home or self-care (01) | DRG 552 ==
LOC: M ED 08:50 → EDBD 08:50 → M ED INP 12:37 → ENRESERV 14:52 → M MS5PR 16:35 → OBSVTOIN 02-28 18:28 → M MS5PR 02-28 18:29
PROVIDERS: ADMIT General Practice; ATTEND Neuromusculoskeletal Medicine & OMM
DX: M51.36 Other intervertebral disc degeneration, lumbar region (principal); I50.22 Chronic systolic (congestive) heart failure; I42.9 Cardiomyopathy, unspecified; K59.00 Constipation, unspecified; I34.0 Nonrheumatic mitral (valve) insufficiency; R73.01 Impaired fasting glucose; Z79.899 Other long term (current) drug therapy; Z87.891 Personal history of nicotine dependence

== ENCOUNTER 2021-11-03 11:45 | Inpatient (IN) | payer MEDICARE ==
[~2021-11-03] VITALS: Ht 157.5 cm; Wt 49.7 kg
[~2021-11-03 11:45] MED LIST changes: +ALTA1CAP3 PO; -CEFD1CAP8 PO; +CEFD300C41 PO; +CELE100C PO; +RAMI1CAP21 PO; +SPIR-10 PO
[2021-11-03] MEDS ORDERED: PRED20TA PO (11:53)
[2021-11-03] MEDS ORDERED: CALCIUM CHLORIDE 10% 1 GM in D5W 100 ML IV STA (12:57)
[2021-11-03 13:08] LABS: BASO # 0.1 10^3/uL (0.0-0.2); BASO % 0.6 % (0.0-1.0); EOS # 0.4 10^3/uL (0.0-0.5); EOS % 3.1 % (0.0-3.0); HEMATOCRIT 29.9 % (36.0-47.0); HEMOGLOBIN 9.8 g/dl (12.0-15.5); LYMPH # 0.8 10^3/uL (1.5-5.0); MEAN CORPUSCULAR HEMOGLOBIN 28.4 pg (27.0-33.0); MEAN CORPUSCULAR HGB CONC 32.8 g/dl (32.0-36.5); MEAN CORPUSCULAR VOLUME 86.7 fl (80.0-96.0); MONO # 1.1 10^3/uL (0.0-0.8); MONO % 9.4 % (2.0-8.0); NEUTROPHILS # 9.2 10^3/uL (1.5-8.5); NEUTROPHILS % 79.3 % (36.0-66.0); PLATELET COUNT, AUTOMATED 476 10^3/uL (150-450); RED BLOOD COUNT 3.45 10^6/uL (4.00-5.40); WHITE BLOOD COUNT 11.6 10^3/uL (4.0-10.0)
[2021-11-03 13:58] LABS: ALBUMIN 2.8 GM/DL (3.2-5.2); ALT/SGPT 26 U/L (12-78); BILIRUBIN,DIRECT < 0.1 MG/DL (0.0-0.2); BILIRUBIN,TOTAL 0.5 MG/DL (0.2-1.0); BLOOD UREA NITROGEN 54 MG/DL (7-18); CALCIUM LEVEL 9.7 MG/DL (8.8-10.2); CARBON DIOXIDE LEVEL 21 MEQ/L (21-32); CHLORIDE LEVEL 112 MEQ/L (98-107); CREATININE FOR GFR 1.77 MG/DL (0.55-1.30); GLOMERULAR FILTRATION RATE 29.8 (>39); GLUCOSE, FASTING 102 MG/DL (70-100); LIPASE 318 U/L (73-393); MAGNESIUM LEVEL 1.9 MG/DL (1.8-2.4); POTASSIUM SERUM 6.7 MEQ/L (3.5-5.1); SODIUM LEVEL 136 MEQ/L (136-145); TOTAL PROTEIN 7.7 GM/DL (6.4-8.2)
[2021-11-03] MEDS ORDERED: NS 500 ML IV ONE (14:00)
[2021-11-03] MEDS ORDERED: HumuLIN R (REGULAR) INSULIN (NovoLIN R) **100U/ML** PER UNIT IV ONE (14:00)
[2021-11-03] MEDS ORDERED: NS 1,000 ML IV SCH (14:00)
[2021-11-03] MEDS ORDERED: DEXTROSE 50% 50 ML SYRINGE IV ONE (14:00)
[2021-11-03] MEDS ORDERED: PATIROMER SORBITEX CALCIUM 8.4 GM POWDER PACKET (VELTASSA) PO ONE ×2 (14:00→18:30)
[2021-11-03 14:54] LABS: RSV AMPLIFICATION NEGATIVE (NEGATIVE)
[2021-11-03] MEDS ORDERED: CELE1CAP7 PO (14:58)
[2021-11-03] MEDS ORDERED: HOME MED LIST COMPLETE! XX SCH (15:00)
[2021-11-03] MEDS ORDERED: HEPARIN SOD (PORCINE) 5000UNITS/ML 1ML VIAL/SYRINGE SQ SCH (15:45)
[2021-11-03] MEDS ORDERED: SOD POLYSTYRENE SULFONATE SUSP 15 GM/60 ML UD PO ONE (18:15)
[2021-11-03 18:18] LABS: CREATININE,RANDOM URINE 24.6 MG/DL; TOTAL PROTEIN,RANDOM URINE 37.7 MG/DL (0.0-12.0)
[2021-11-03] MEDS: NS 1,000 ML IV SCH (18:34)
[2021-11-03 21:00] VITALS: BP_SYST 130; BP_SYST 135; BP_DIAS 61; BP_DIAS 63; BP_DIAS 66
[2021-11-03] MEDS: CARVedilol 3.125 MG TAB PO SCH (21:49)
[2021-11-03] MEDS: ACETAMINOPHEN TAB 650MG DOSE (2X325MG) PO PRN (23:57)
[2021-11-04] VITALS (7 sets, daily range): BP systolic 101–133; BP diastolic 50–62
[2021-11-04] MEDS ORDERED: SOD POLYSTYRENE SULFONATE SUSP 15 GM/60 ML UD PO ONE (01:00)
[2021-11-04] MEDS: NS 1,000 ML IV SCH ×2 (01:07→14:07)
[2021-11-04 04:14] LABS: HEMATOCRIT 25.5 % (36.0-47.0); HEMOGLOBIN 8.4 g/dl (12.0-15.5); MEAN CORPUSCULAR HEMOGLOBIN 28.6 pg (27.0-33.0); MEAN CORPUSCULAR HGB CONC 32.9 g/dl (32.0-36.5); MEAN CORPUSCULAR VOLUME 86.7 fl (80.0-96.0); PLATELET COUNT, AUTOMATED 379 10^3/uL (150-450); RED BLOOD COUNT 2.94 10^6/uL (4.00-5.40); WHITE BLOOD COUNT 8.2 10^3/uL (4.0-10.0)
[2021-11-04 04:32] LABS: CREATININE FOR GFR 1.44 MG/DL (0.55-1.30); GLOMERULAR FILTRATION RATE 37.8 (>39); MAGNESIUM LEVEL 1.5 MG/DL (1.8-2.4); POTASSIUM SERUM 5.8 MEQ/L (3.5-5.1)
[2021-11-04] MEDS ORDERED: ENOXAPARIN 40MG/0.4ML SYRINGE (J1650 PER 10MG) SC SCH (09:00)
[2021-11-04] MEDS: CARVedilol 3.125 MG TAB PO SCH ×2 (09:36→20:39)
[2021-11-04] MEDS: ENOXAPARIN 30MG/0.3ML SYRINGE (J1650 PER 10MG) SC SCH (09:37)
[2021-11-04] MEDS: ACETAMINOPHEN TAB 650MG DOSE (2X325MG) PO PRN ×2 (09:43→20:39)
[2021-11-04 13:52] LABS: CALCIUM LEVEL 8.6 MG/DL (8.8-10.2); CREATININE FOR GFR 1.4 MG/DL (0.55-1.30)
[2021-11-04] MEDS: MAG SULF 1GM/100ML (MAG RUN) 1 GM in IV 1 EA IV SCH ×3 (15:00→17:20)
[2021-11-04 15:11] LABS: CALCIUM LEVEL 8.6 MG/DL (8.8-10.2); CREATININE FOR GFR 1.39 MG/DL (0.55-1.30); GLOMERULAR FILTRATION RATE 39.3 (>39); POTASSIUM SERUM 4.7 MEQ/L (3.5-5.1)
[2021-11-05] MEDS: NS 1,000 ML IV SCH (01:55)
[2021-11-05 03:37] VITALS: BP 107/55
[2021-11-05 05:32] LABS: HEMATOCRIT 23.4 % (36.0-47.0); HEMOGLOBIN 7.5 g/dl (12.0-15.5); MEAN CORPUSCULAR HEMOGLOBIN 28.5 pg (27.0-33.0); MEAN CORPUSCULAR HGB CONC 32.1 g/dl (32.0-36.5); PLATELET COUNT, AUTOMATED 342 10^3/uL (150-450); RED BLOOD COUNT 2.63 10^6/uL (4.00-5.40); WHITE BLOOD COUNT 8.1 10^3/uL (4.0-10.0)
[2021-11-05 05:50] LABS: CALCIUM LEVEL 8.4 MG/DL (8.8-10.2); CREATININE FOR GFR 1.16 MG/DL (0.55-1.30); GLOMERULAR FILTRATION RATE 48.5 (>39); MAGNESIUM LEVEL 1.9 MG/DL (1.8-2.4); POTASSIUM SERUM 4.4 MEQ/L (3.5-5.1)
[2021-11-05 08:18] VITALS: BP 119/58
[2021-11-05 09:00] VITALS: BP 119/58
[2021-11-05] MEDS: ENOXAPARIN 30MG/0.3ML SYRINGE (J1650 PER 10MG) SC SCH (09:00)
[2021-11-05] MEDS: CARVedilol 3.125 MG TAB PO SCH (09:00)
[2021-11-05] MEDS: ACETAMINOPHEN TAB 650MG DOSE (2X325MG) PO PRN (09:01)
[2021-11-05 11:09] LABS: HEMATOCRIT 24.5 % (36.0-47.0); HEMOGLOBIN 7.9 g/dl (12.0-15.5)
[2021-11-05 12:15] VITALS: BP 112/54
== END 2021-11-05 13:54 | disposition home health service (06) | DRG 683 ==
LOC: M ED 11:45 → M ED INP 16:58 → ENRESERV 19:02 → M PCU 20:50
PROVIDERS: ADMIT Internal Medicine; ATTEND Internal Medicine
DX: N17.9 Acute kidney failure, unspecified (principal); I50.22 Chronic systolic (congestive) heart failure; I42.9 Cardiomyopathy, unspecified; I34.0 Nonrheumatic mitral (valve) insufficiency; E74.39 Other disorders of intestinal carbohydrate absorption; M54.50 Low back pain, unspecified; E87.5 Hyperkalemia; I11.0 Hypertensive heart disease with heart failure; D72.829 Elevated white blood cell count, unspecified; M19.90 Unspecified osteoarthritis, unspecified site; Z79.52 Long term (current) use of systemic steroids; Z79.899 Other long term (current) drug therapy; D64.9 Anemia, unspecified; K59.09 Other constipation; E86.0 Dehydration; Z20.822 Contact with and (suspected) exposure to COVID-19

== ENCOUNTER 2022-10-21 14:00 | Inpatient (IN) | payer MEDICARE ==
[~2022-10-21] VITALS: Ht 160 cm; Wt 46.6 kg
[~2022-10-21 14:00] MED LIST changes: +CELE1CAP7 PO; +PRED20TA PO
[2022-10-21] MEDS ORDERED: ACET650T61 PO (14:17)
[2022-10-21] MEDS ORDERED: PRED20TA PO (14:17)
[2022-10-21] MEDS ORDERED: OMEP40CA5 PO (14:17)
[2022-10-21 14:56] LABS: VENOUS BASE EXCESS 0.7 (-2.0-2.0); VENOUS HCO3 24.9 MEQ/L (23.0-27.0); VENOUS O2 SATURATION 97.9 % (60.0-80.0); VENOUS PARTIAL PRESSURE CO2 38.5 mmHg (38.0-50.0); VENOUS PH 7.428 UNITS (7.330-7.430); VENOUS STANDARD HCO3 25.1 MEQ/L
[2022-10-21 15:01] LABS: BASO % 0.2 % (0.0-1.0); EOS % 0.2 % (0.0-3.0); HEMATOCRIT 41.4 % (36.0-47.0); LYMPH # 0.4 10^3/uL (1.5-5.0); LYMPH % 2.6 % (24.0-44.0); MEAN CORPUSCULAR HEMOGLOBIN 30.2 pg (27.0-33.0); MEAN CORPUSCULAR HGB CONC 31.4 g/dl (32.0-36.5); MEAN CORPUSCULAR VOLUME 96.1 fl (80.0-96.0); MONO # 0.4 10^3/uL (0.0-0.8); MONO % 2.3 % (2.0-8.0); NEUTROPHILS # 15.4 10^3/uL (1.5-8.5); NEUTROPHILS % 94.3 % (36.0-66.0); PLATELET COUNT, AUTOMATED 495 10^3/uL (150-450); RED BLOOD COUNT 4.31 10^6/uL (4.00-5.40); WHITE BLOOD COUNT 16.4 10^3/uL (4.0-10.0)
[2022-10-21 15:19] LABS: ALBUMIN 3.4 G/DL (3.2-5.2); BILIRUBIN,DIRECT 0.1 MG/DL (<0.4); BILIRUBIN,TOTAL 0.5 MG/DL (0.3-1.2); CALCIUM LEVEL 9.6 MG/DL (8.3-10.6); CREATININE FOR GFR 1.01 MG/DL (0.55-1.30); GLOMERULAR FILTRATION RATE 56.7 (>39); POTASSIUM SERUM 4.4 MMOL/L (3.5-5.1); TOTAL PROTEIN 7.2 G/DL (5.7-8.2)
[2022-10-21 15:22] LABS: THYROID STIMULATING HORMONE 0.664 uIU/ML (0.55-4.78); THYROXINE (T4) 9.9 UG/DL (4.5-10.9)
[2022-10-21 15:37] LABS: RSV AMPLIFICATION NEGATIVE (NEGATIVE)
[2022-10-21] MEDS ORDERED: ISOVUE-370 76% 100ML VIAL As Ordered ONE (16:16)
[2022-10-21] MEDS ORDERED: FUROSEMIDE 20MG/2ML VIAL IV ONE (18:00)
[2022-10-21] MEDS ORDERED: HOME MED LIST COMPLETE! XX SCH (19:10)
[2022-10-21] MEDS ORDERED: MOM 30ML SUSPENSION UDC PO PRN (19:50)
[2022-10-21] MEDS: DOCUSATE SODIUM 100MG CAPSULE PO SCH (20:58)
[2022-10-21] MEDS: CARVedilol 3.125 MG TAB PO SCH (20:58)
[2022-10-21 22:00] VITALS: BP 182/90
[2022-10-21 23:23] VITALS: BP 160/88
[2022-10-22 04:00] VITALS: BP 138/80
[2022-10-22] MEDS: HEPARIN SOD (PORCINE) 5000UNITS/ML 1ML VIAL/SYRINGE SC SCH ×2 (05:06→14:00)
[2022-10-22 06:03] LABS: HEMATOCRIT 39.5 % (36.0-47.0); HEMOGLOBIN 12.5 g/dl (12.0-15.5); MEAN CORPUSCULAR HEMOGLOBIN 30.3 pg (27.0-33.0); MEAN CORPUSCULAR HGB CONC 31.6 g/dl (32.0-36.5); MEAN CORPUSCULAR VOLUME 95.9 fl (80.0-96.0); PLATELET COUNT, AUTOMATED 447 10^3/uL (150-450); RED BLOOD COUNT 4.12 10^6/uL (4.00-5.40); WHITE BLOOD COUNT 10.1 10^3/uL (4.0-10.0)
[2022-10-22 06:41] LABS: ALBUMIN 3.1 G/DL (3.2-5.2); BILIRUBIN,TOTAL 0.5 MG/DL (0.3-1.2); CALCIUM LEVEL 9.5 MG/DL (8.3-10.6); GLOMERULAR FILTRATION RATE 57.4 (>39); TOTAL PROTEIN 6.5 G/DL (5.7-8.2)
[2022-10-22 07:34] VITALS: BP 142/74
[2022-10-22 08:20] VITALS: BP 142/74
[2022-10-22] MEDS: CARVedilol 3.125 MG TAB PO SCH (08:20)
[2022-10-22] MEDS: DOCUSATE SODIUM 100MG CAPSULE PO SCH (08:22)
[2022-10-22] MEDS ORDERED: LISINOPRIL *2.5 MG* TAB PO SCH (09:00)
[2022-10-22] MEDS ORDERED: predniSONE 20 MG TAB PO SCH (09:00)
[2022-10-22] MEDS ORDERED: FUROSEMIDE 20MG/2ML VIAL IV SCH (09:00)
[2022-10-22] MEDS ORDERED: PRED5TA PO (11:02)
[2022-10-22] MEDS ORDERED: LISI2.5T9 PO (11:02)
[2022-10-22] MEDS ORDERED: LASI20TA3 PO (11:02)
[2022-10-22 12:00] VITALS: BP 156/71
[2022-10-22] MEDS ORDERED: METO25TA PO (12:55)
== END 2022-10-22 14:50 | disposition home health service (06) | DRG 291 ==
LOC: M ED 14:00 → M ED INP 19:47 → UNDOADMIN 19:47 → ENRESERV 21:42 → M ED INP 22:01 → M PCU 22:01
PROVIDERS: ADMIT Family Medicine; ATTEND Family Medicine
PROC: B246ZZZ Ultrasonography of Right and Left Heart (ICD-10-PCS; principal; 2022-10-22)
DX: I11.0 Hypertensive heart disease with heart failure (principal); I50.43 Acute on chronic combined systolic (congestive) and diastolic (congestive) heart failure; Z68.1 Body mass index [BMI] 19.9 or less, adult; M54.50 Low back pain, unspecified; G89.29 Other chronic pain; N18.9 Chronic kidney disease, unspecified; I34.0 Nonrheumatic mitral (valve) insufficiency; Z87.891 Personal history of nicotine dependence; Z20.822 Contact with and (suspected) exposure to COVID-19; Z79.52 Long term (current) use of systemic steroids; Z79.899 Other long term (current) drug therapy; R63.6 Underweight; I27.20 Pulmonary hypertension, unspecified; E04.1 Nontoxic single thyroid nodule; J43.9 Emphysema, unspecified; M81.0 Age-related osteoporosis without current pathological fracture; M48.00 Spinal stenosis, site unspecified; M19.90 Unspecified osteoarthritis, unspecified site

== ENCOUNTER → 2023-12-03 | Outpatient (REF) | payer MEDICARE ==
[~2023-12-03] MED LIST changes: +ACET650T61 PO; +CEFD1CAP9 PO; -CEFD300C41 PO; -CELE1CAP7 PO; +CELE1CAP99 PO; +LASI20TA3 PO; +LISI2.5T9 PO; +METO25TA PO; +OMEP40CA5 PO; +PRED5TA PO
[2023-12-03 20:31] LABS: BASO % 0.2 % (0.0-1.0); HEMATOCRIT 37.8 % (36.0-47.0); HEMOGLOBIN 12.1 g/dl (12.0-15.5); LYMPH # 0.5 10^3/uL (1.5-5.0); LYMPH % 3.4 % (24.0-44.0); MEAN CORPUSCULAR HEMOGLOBIN 32.4 pg (27.0-33.0); MEAN CORPUSCULAR VOLUME 101.1 fl (80.0-96.0); MONO # 0.7 10^3/uL (0.0-0.8); MONO % 4.4 % (2.0-8.0); NEUTROPHILS # 13.9 10^3/uL (1.5-8.5); NEUTROPHILS % 91.5 % (36.0-66.0); PLATELET COUNT, AUTOMATED 665 10^3/uL (150-450); RED BLOOD COUNT 3.74 10^6/uL (4.00-5.40); WHITE BLOOD COUNT 15.1 10^3/uL (4.0-10.0)
[2023-12-03 20:47] LABS: ERYTHROCYTE SEDIMENTATION RATE 102 mm/hr (0-30)
[2023-12-03 21:06] LABS: ALBUMIN 3.5 G/DL (3.2-5.2); BILIRUBIN,TOTAL 0.3 MG/DL (0.3-1.2); CALCIUM LEVEL 9.2 MG/DL (8.3-10.6); CREATININE FOR GFR 1.15 MG/DL (0.55-1.30); GLOMERULAR FILTRATION RATE 48.7 (>39); POTASSIUM SERUM 4.8 MMOL/L (3.5-5.1); TOTAL PROTEIN 6.9 G/DL (5.7-8.2)
[2023-12-03 21:08] LABS: TOTAL 25(OH) VITAMIN D 48.3 NG/ML (20.0-100.0)
== END ==
LOC: M LAB REF 19:57
PROVIDERS: ATTEND Family Medicine
DX: M81.0 Age-related osteoporosis without current pathological fracture (principal); M35.3 Polymyalgia rheumatica; I50.20 Unspecified systolic (congestive) heart failure

== ENCOUNTER 2024-02-26 14:03 | Inpatient (IN) | payer MEDICARE ==
[~2024-02-26] VITALS: Ht 157.5 cm; Wt 38.8 kg
[~2024-02-26 14:03] MED LIST changes: +RAMI1.258 PO; -RAMI1CAP21 PO
[2024-02-26 14:57] LABS: BASO % 0.1 % (0.0-1.0); EOS % 0.1 % (0.0-3.0); HEMATOCRIT 34.8 % (36.0-47.0); HEMOGLOBIN 11.8 g/dl (12.0-15.5); LYMPH # 0.1 10^3/uL (1.5-5.0); LYMPH % 0.8 % (24.0-44.0); MEAN CORPUSCULAR HGB CONC 33.9 g/dl (32.0-36.5); MEAN CORPUSCULAR VOLUME 100.3 fl (80.0-96.0); MONO # 0.5 10^3/uL (0.0-0.8); NEUTROPHILS # 16.2 10^3/uL (1.5-8.5); NEUTROPHILS % 95.1 % (36.0-66.0); PLATELET COUNT, AUTOMATED 424 10^3/uL (150-450); RED BLOOD COUNT 3.47 10^6/uL (4.00-5.40)
[2024-02-26 15:21] LABS: CK-MB VALUE MASS 1.4 NG/ML (<3.6)
[2024-02-26 15:23] LABS: ALBUMIN 2.6 G/DL (3.2-5.2); ALKALINE PHOSPHATASE 101 U/L (46-116); ALT/SGPT 23 U/L (7.0-40); AST/SGOT 11 U/L (<34); BILIRUBIN,DIRECT < 0.1 MG/DL (<0.4); BILIRUBIN,TOTAL 0.2 MG/DL (0.3-1.2); TOTAL PROTEIN 5.5 G/DL (5.7-8.2)
[2024-02-26 15:25] LABS: THYROID STIMULATING HORMONE 0.444 uIU/ML (0.55-4.78)
[2024-02-26 15:26] LABS: CPK CREATINE PHOSPHOKINASE 25 U/L (34-145)
[2024-02-26 15:54] LABS: ERYTHROCYTE SEDIMENTATION RATE 36 mm/hr (0-30)
[2024-02-26 15:59] LABS: BLOOD UREA NITROGEN 70 MG/DL (9-23); CALCIUM LEVEL 8.8 MG/DL (8.3-10.6); CARBON DIOXIDE LEVEL 22 MMOL/L (20-31); CHLORIDE LEVEL 106 MMOL/L (98-107); CREATININE FOR GFR 1.55 MG/DL (0.55-1.30); GLOMERULAR FILTRATION RATE 34.5 (>39); GLUCOSE, FASTING 147 MG/DL (74-106); SODIUM LEVEL 139 MMOL/L (136-145)
[2024-02-26] MEDS: NS 1,000 ML IV ONE (16:15)
[2024-02-26] MEDS: NS 1,000 ML IV SCH (17:30)
[2024-02-26 18:54] LABS: VITAMIN B12 LEVEL 525 PG/ML (211-911)
[2024-02-26 18:58] LABS: FOLATE > 24.0 NG/ML (>5.4); PROCALCITONIN 0.44 ng/ml
[2024-02-26] MEDS ORDERED: FURO20TA2 PO (19:37)
[2024-02-26] MEDS ORDERED: MULT-90 PO (19:37)
[2024-02-26] MEDS ORDERED: PRED5TA PO (19:37)
[2024-02-26] MEDS ORDERED: LISI2.5T9 PO (19:37)
[2024-02-26] MEDS ORDERED: HOME MED LIST COMPLETE! XX SCH (19:40)
[2024-02-26 21:18] VITALS: BP 122/65; TEMP 97.9; O2SAT 91
[2024-02-26] MEDS: CARVedilol 3.125 MG TAB PO SCH (21:55)
[2024-02-26] MEDS: HEPARIN SOD (PORCINE) 5000UNITS/ML 1ML VIAL/SYRINGE SC SCH (21:56)
[2024-02-27] VITALS (13 sets, daily range): BP systolic 72–117; BP diastolic 44–73; TEMP 97.5–98.2; O2SAT 87–96
[2024-02-27] MEDS: ACETAMINOPHEN 650MG ER TAB (TYLENOL ARTHRITIS) PO SCH (04:55)
[2024-02-27] MEDS: FUROSEMIDE 20MG/2ML VIAL IV ONE (07:00)
[2024-02-27 07:01] LABS: HEMOGLOBIN 11.7 g/dl (12.0-15.5); MEAN CORPUSCULAR HEMOGLOBIN 33.4 pg (27.0-33.0); MEAN CORPUSCULAR HGB CONC 33.4 g/dl (32.0-36.5); PLATELET COUNT, AUTOMATED 459 10^3/uL (150-450); WHITE BLOOD COUNT 16.6 10^3/uL (4.0-10.0)
[2024-02-27 07:34] LABS: CALCIUM LEVEL 8.9 MG/DL (8.3-10.6); CREATININE FOR GFR 1.14 MG/DL (0.55-1.30); GLOMERULAR FILTRATION RATE 49.2 (>39)
[2024-02-27] MEDS ORDERED: ISOVUE-370 76% 100ML VIAL As Ordered ONE (08:10)
[2024-02-27] MEDS: CARVedilol 3.125 MG TAB PO ONE (08:13)
[2024-02-27] MEDS: predniSONE 5 MG TAB PO SCH ×2 (08:52→21:55)
[2024-02-27] MEDS: OMEPRAZOLE 20MG CAP PO SCH (08:53)
[2024-02-27] MEDS: METOPROLOL TART 25 MG TABLET PO SCH (12:00)
[2024-02-27 12:09] LABS: PROCALCITONIN 0.28 ng/ml
[2024-02-27] MEDS: LR 1,000 ML IV ONE (12:52)
[2024-02-27] MEDS: HYDROCORTISONE 100MG/2ML VIAL IV ONE (14:22)
[2024-02-27] MEDS: LR 1,000 ML IV SCH (14:31)
[2024-02-28] MEDS ORDERED: OMEPRAZOLE 20MG CAP As Ordered ONE (08:30)
[2024-02-28] MEDS ORDERED: predniSONE 5 MG TAB As Ordered ONE (09:52)
[2024-02-28 11:55] VITALS: BP 94/52; TEMP 97.6; O2SAT 99
[2024-02-28 14:06] LABS: CALCIUM LEVEL 8.2 MG/DL (8.3-10.6); CREATININE FOR GFR 0.99 MG/DL (0.55-1.30); GLOMERULAR FILTRATION RATE 57.9 (>39); MAGNESIUM LEVEL 1.7 MG/DL (1.8-2.4); POTASSIUM SERUM 3.8 MMOL/L (3.5-5.1)
[2024-02-28] MEDS: D5W/0.45% SODIUM CHLORIDE 1,000 ML IV SCH (15:23)
[2024-02-28] MEDS: MAG SULF 1GM/100ML (MAG RUN) 1 GM in IV 1 EA IV ONE (15:24)
[2024-02-28 15:58] LABS: BASO % 0.1 % (0.0-1.0); HEMATOCRIT 30.1 % (36.0-47.0); HEMOGLOBIN 9.9 g/dl (12.0-15.5); LYMPH # 0.1 10^3/uL (1.5-5.0); MEAN CORPUSCULAR HEMOGLOBIN 33.8 pg (27.0-33.0); MEAN CORPUSCULAR HGB CONC 32.9 g/dl (32.0-36.5); MEAN CORPUSCULAR VOLUME 102.7 fl (80.0-96.0); MONO # 0.5 10^3/uL (0.0-0.8); MONO % 3.9 % (2.0-8.0); NEUTROPHILS # 11.1 10^3/uL (1.5-8.5); NEUTROPHILS % 93.9 % (36.0-66.0); PLATELET COUNT, AUTOMATED 341 10^3/uL (150-450); RED BLOOD COUNT 2.93 10^6/uL (4.00-5.40); WHITE BLOOD COUNT 11.8 10^3/uL (4.0-10.0)
[2024-02-28 16:15] VITALS: BP 107/56; TEMP 98.3; O2SAT 96
[2024-02-28 19:00] VITALS: BP 106/57; TEMP 97; O2SAT 92
[2024-02-28 21:16] VITALS: O2SAT 93
[2024-02-28 23:34] VITALS: BP 106/58
[2024-02-29] VITALS (23 sets, daily range): BP systolic 105–129; BP diastolic 57–67; TEMP 96.9–97.9; O2SAT 85–99
[2024-02-29 08:09] LABS: BASO % 0.1 % (0.0-1.0); HEMATOCRIT 30.9 % (36.0-47.0); HEMOGLOBIN 9.9 g/dl (12.0-15.5); LYMPH # 0.2 10^3/uL (1.5-5.0); LYMPH % 1.3 % (24.0-44.0); MEAN CORPUSCULAR HEMOGLOBIN 33.1 pg (27.0-33.0); MEAN CORPUSCULAR VOLUME 103.3 fl (80.0-96.0); MONO # 0.6 10^3/uL (0.0-0.8); MONO % 3.9 % (2.0-8.0); NEUTROPHILS # 13.5 10^3/uL (1.5-8.5); NEUTROPHILS % 93.7 % (36.0-66.0); PLATELET COUNT, AUTOMATED 386 10^3/uL (150-450); RED BLOOD COUNT 2.99 10^6/uL (4.00-5.40); WHITE BLOOD COUNT 14.5 10^3/uL (4.0-10.0)
[2024-02-29 08:36] LABS: BLOOD UREA NITROGEN 21 MG/DL (9-23); CARBON DIOXIDE LEVEL 27 MMOL/L (20-31); CHLORIDE LEVEL 115 MMOL/L (98-107); CREATININE FOR GFR 0.74 MG/DL (0.55-1.30); GLOMERULAR FILTRATION RATE > 60.0 (>39); GLUCOSE, FASTING 134 MG/DL (74-106); MAGNESIUM LEVEL 2.1 MG/DL (1.8-2.4); POTASSIUM SERUM 3.9 MMOL/L (3.5-5.1); SODIUM LEVEL 149 MMOL/L (136-145)
[2024-02-29] MEDS: FUROSEMIDE 20MG/2ML VIAL IV ONE (18:39)
[2024-03-01] VITALS (37 sets, daily range): BP systolic 111–133; BP diastolic 56–67; TEMP 96.9–98.3; O2SAT 87–98
[2024-03-01] MEDS: IPRATROPIUM 0.5MG/ALBUTEROL 2.5MG INH SOL UD 3ML (DUONEB) NEB ONE (06:57)
[2024-03-01 07:09] LABS: BASO % 0.1 % (0.0-1.0); HEMATOCRIT 31.6 % (36.0-47.0); HEMOGLOBIN 10.1 g/dl (12.0-15.5); LYMPH # 0.3 10^3/uL (1.5-5.0); LYMPH % 1.6 % (24.0-44.0); MEAN CORPUSCULAR HEMOGLOBIN 33.6 pg (27.0-33.0); MONO # 0.5 10^3/uL (0.0-0.8); MONO % 3.1 % (2.0-8.0); NEUTROPHILS # 14.7 10^3/uL (1.5-8.5); PLATELET COUNT, AUTOMATED 387 10^3/uL (150-450); RED BLOOD COUNT 3.01 10^6/uL (4.00-5.40); WHITE BLOOD COUNT 15.7 10^3/uL (4.0-10.0)
[2024-03-01 07:37] LABS: BLOOD UREA NITROGEN 22 MG/DL (9-23); CARBON DIOXIDE LEVEL 30 MMOL/L (20-31); CHLORIDE LEVEL 116 MMOL/L (98-107); GLOMERULAR FILTRATION RATE > 60.0 (>39); GLUCOSE, FASTING 124 MG/DL (74-106); POTASSIUM SERUM 4.2 MMOL/L (3.5-5.1); SODIUM LEVEL 150 MMOL/L (136-145)
[2024-03-01] MEDS: FUROSEMIDE 10MG PER 1/2 TABLET PO SCH (09:21)
[2024-03-01] MEDS: predniSONE 5 MG TAB PO SCH (09:22)
[2024-03-01] MEDS: D5W 1,000 ML IV SCH (11:57)
[2024-03-01] MEDS: predniSONE 10MG TAB PO SCH (21:03)
[2024-03-02] VITALS (13 sets, daily range): BP systolic 116–139; BP diastolic 59–74; TEMP 97.8–98.2; O2SAT 90–97
[2024-03-02] MEDS: IPRATROPIUM 0.5MG/ALBUTEROL 2.5MG INH SOL UD 3ML (DUONEB) NEB PRN (04:44)
[2024-03-02 06:30] LABS: BASO % 0.1 % (0.0-1.0); EOS % 0.1 % (0.0-3.0); HEMATOCRIT 29.7 % (36.0-47.0); HEMOGLOBIN 9.7 g/dl (12.0-15.5); LYMPH # 0.2 10^3/uL (1.5-5.0); LYMPH % 1.3 % (24.0-44.0); MEAN CORPUSCULAR HEMOGLOBIN 33.1 pg (27.0-33.0); MEAN CORPUSCULAR HGB CONC 32.7 g/dl (32.0-36.5); MEAN CORPUSCULAR VOLUME 101.4 fl (80.0-96.0); MONO # 0.5 10^3/uL (0.0-0.8); MONO % 3.4 % (2.0-8.0); NEUTROPHILS # 13.4 10^3/uL (1.5-8.5); NEUTROPHILS % 93.6 % (36.0-66.0); PLATELET COUNT, AUTOMATED 338 10^3/uL (150-450); RED BLOOD COUNT 2.93 10^6/uL (4.00-5.40); WHITE BLOOD COUNT 14.3 10^3/uL (4.0-10.0)
[2024-03-02 07:01] LABS: BLOOD UREA NITROGEN 20 MG/DL (9-23); CALCIUM LEVEL 8.7 MG/DL (8.3-10.6); CARBON DIOXIDE LEVEL 29 MMOL/L (20-31); CHLORIDE LEVEL 110 MMOL/L (98-107); CREATININE FOR GFR 0.66 MG/DL (0.55-1.30); GLOMERULAR FILTRATION RATE > 60.0 (>39); GLUCOSE, FASTING 166 MG/DL (74-106); POTASSIUM SERUM 4.2 MMOL/L (3.5-5.1); SODIUM LEVEL 142 MMOL/L (136-145)
[2024-03-02] MEDS: OMEPRAZOLE 20MG CAP PO SCH (08:05)
[2024-03-02] MEDS: FUROSEMIDE 20 MG TAB PO STA (12:42)
[2024-03-02] MEDS: METOPROLOL TART 25 MG TABLET PO SCH (20:53)
[2024-03-03 04:00] VITALS: BP 144/74; TEMP 97.3; O2SAT 92
[2024-03-03 05:58] LABS: BASO % 0.1 % (0.0-1.0); HEMATOCRIT 33.1 % (36.0-47.0); HEMOGLOBIN 10.9 g/dl (12.0-15.5); LYMPH # 0.3 10^3/uL (1.5-5.0); LYMPH % 1.5 % (24.0-44.0); MEAN CORPUSCULAR HEMOGLOBIN 33.2 pg (27.0-33.0); MEAN CORPUSCULAR HGB CONC 32.9 g/dl (32.0-36.5); MEAN CORPUSCULAR VOLUME 100.9 fl (80.0-96.0); MONO # 0.5 10^3/uL (0.0-0.8); NEUTROPHILS % 92.7 % (36.0-66.0); PLATELET COUNT, AUTOMATED 401 10^3/uL (150-450); RED BLOOD COUNT 3.28 10^6/uL (4.00-5.40); WHITE BLOOD COUNT 16.2 10^3/uL (4.0-10.0)
[2024-03-03 06:29] LABS: BLOOD UREA NITROGEN 21 MG/DL (9-23); CALCIUM LEVEL 8.6 MG/DL (8.3-10.6); CARBON DIOXIDE LEVEL 29 MMOL/L (20-31); CHLORIDE LEVEL 108 MMOL/L (98-107); GLOMERULAR FILTRATION RATE > 60.0 (>39); GLUCOSE, FASTING 120 MG/DL (74-106); POTASSIUM SERUM 4.3 MMOL/L (3.5-5.1); SODIUM LEVEL 141 MMOL/L (136-145)
[2024-03-03 07:36] VITALS: BP 143/81; TEMP 99; O2SAT 91
[2024-03-03] MEDS: FUROSEMIDE 20 MG TAB PO SCH (08:06)
[2024-03-03 09:24] LABS: MAGNESIUM LEVEL 1.8 MG/DL (1.8-2.4)
[2024-03-03 11:38] VITALS: BP 127/72; TEMP 98.2; TEMP 98.3; O2SAT 92; O2SAT 94
[2024-03-03 15:31] VITALS: BP 141/69; TEMP 98.2; O2SAT 92
[2024-03-03 19:54] VITALS: BP 135/74; TEMP 98.9; O2SAT 94
[2024-03-04 04:00] VITALS: BP 119/68; TEMP 98; O2SAT 93
[2024-03-04 06:11] LABS: BASO % 0.3 % (0.0-1.0); EOS % 0.1 % (0.0-3.0); HEMATOCRIT 33.9 % (36.0-47.0); HEMOGLOBIN 11.2 g/dl (12.0-15.5); LYMPH # 0.3 10^3/uL (1.5-5.0); LYMPH % 1.7 % (24.0-44.0); MEAN CORPUSCULAR HEMOGLOBIN 33.4 pg (27.0-33.0); MEAN CORPUSCULAR VOLUME 101.2 fl (80.0-96.0); MONO # 0.5 10^3/uL (0.0-0.8); MONO % 3.4 % (2.0-8.0); NEUTROPHILS # 13.9 10^3/uL (1.5-8.5); NEUTROPHILS % 92.1 % (36.0-66.0); PLATELET COUNT, AUTOMATED 436 10^3/uL (150-450); RED BLOOD COUNT 3.35 10^6/uL (4.00-5.40)
[2024-03-04 06:41] LABS: BLOOD UREA NITROGEN 23 MG/DL (9-23); CALCIUM LEVEL 8.6 MG/DL (8.3-10.6); CARBON DIOXIDE LEVEL 29 MMOL/L (20-31); CHLORIDE LEVEL 111 MMOL/L (98-107); CREATININE FOR GFR 0.77 MG/DL (0.55-1.30); GLOMERULAR FILTRATION RATE > 60.0 (>39); GLUCOSE, FASTING 148 MG/DL (74-106); MAGNESIUM LEVEL 1.8 MG/DL (1.8-2.4); POTASSIUM SERUM 3.8 MMOL/L (3.5-5.1); SODIUM LEVEL 146 MMOL/L (136-145)
[2024-03-04 08:15] VITALS: BP 120/72; TEMP 98.1; O2SAT 90
[2024-03-04] MEDS: MIRALAX *UNIT DOSE* 17GM PACKET PO STA (11:31)
[2024-03-04] MEDS: SENOKOT S TAB PO SCH (11:31)
[2024-03-04] MEDS: MOM 30ML SUSPENSION UDC PO SCH (11:31)
[2024-03-04] MEDS: LEVALBUTEROL 1.25MG 0.5ML CONCENTRATE NEB INH SCH (14:04)
[2024-03-04 16:08] VITALS: BP 113/59; TEMP 98.8; O2SAT 91
[2024-03-04 19:24] VITALS: BP 114/62; TEMP 98.7; O2SAT 91
[2024-03-04] MEDS: METOPROLOL TART 50 MG TAB PO SCH (20:48)
[2024-03-05] VITALS (8 sets, daily range): BP systolic 106–146; BP diastolic 58–69; TEMP 97.5–99; O2SAT 65–94
[2024-03-05 06:04] LABS: BASO % 0.2 % (0.0-1.0); HEMATOCRIT 33.5 % (36.0-47.0); HEMOGLOBIN 10.9 g/dl (12.0-15.5); LYMPH # 0.2 10^3/uL (1.5-5.0); LYMPH % 1.6 % (24.0-44.0); MEAN CORPUSCULAR HGB CONC 32.5 g/dl (32.0-36.5); MEAN CORPUSCULAR VOLUME 104.4 fl (80.0-96.0); MONO # 0.6 10^3/uL (0.0-0.8); MONO % 4.4 % (2.0-8.0); NEUTROPHILS # 12.8 10^3/uL (1.5-8.5); NEUTROPHILS % 90.8 % (36.0-66.0); PLATELET COUNT, AUTOMATED 392 10^3/uL (150-450); RED BLOOD COUNT 3.21 10^6/uL (4.00-5.40); WHITE BLOOD COUNT 14.1 10^3/uL (4.0-10.0)
[2024-03-05 06:40] LABS: BLOOD UREA NITROGEN 24 MG/DL (9-23); CALCIUM LEVEL 8.8 MG/DL (8.3-10.6); CARBON DIOXIDE LEVEL 30 MMOL/L (20-31); CHLORIDE LEVEL 110 MMOL/L (98-107); CREATININE FOR GFR 0.72 MG/DL (0.55-1.30); GLOMERULAR FILTRATION RATE > 60.0 (>39); GLUCOSE, FASTING 124 MG/DL (74-106); MAGNESIUM LEVEL 1.9 MG/DL (1.8-2.4); POTASSIUM SERUM 4.9 MMOL/L (3.5-5.1); SODIUM LEVEL 145 MMOL/L (136-145)
[2024-03-05] MEDS ORDERED: MIRALAX *UNIT DOSE* 17GM PACKET PO PRN (10:20)
[2024-03-05] MEDS: FUROSEMIDE 10MG PER 1/2 TABLET PO STA (10:36)
[2024-03-05] MEDS ORDERED: SENN-52 PO (14:31)
[2024-03-05] MEDS ORDERED: MIRA33506 PO (14:31)
[2024-03-05] MEDS ORDERED: MOM30SS2 PO (14:31)
[2024-03-05] MEDS ORDERED: FURO20TA2 PO (14:31)
[2024-03-05] MEDS ORDERED: LOPR1TAB6 PO (14:31)
[2024-03-05] MEDS: LEVALBUTEROL 1.25MG 0.5ML CONCENTRATE NEB INH PRN (17:11)
[2024-03-06 00:38] VITALS: O2SAT 91
[2024-03-06 03:59] VITALS: BP 118/58; TEMP 98.6; O2SAT 90
[2024-03-06 08:18] VITALS: BP 123/66; TEMP 97.5; O2SAT 95
[2024-03-06 08:28] VITALS: BP 123/66
[2024-03-06] MEDS: FUROSEMIDE 10MG PER 1/2 TABLET PO SCH (08:28)
== END 2024-03-06 11:15 | DRG 640 ==
LOC: EDBD 14:03 → M ED 14:03 → M ED INP 17:27 → M MSPAV 21:18 → M PCU 02-27 15:17
PROVIDERS: ADMIT Internal Medicine; ATTEND Internal Medicine
PROC: B246ZZZ Ultrasonography of Right and Left Heart (ICD-10-PCS; principal; 2024-02-28)
DX: E86.0 Dehydration (principal); I50.23 Acute on chronic systolic (congestive) heart failure; E43 Unspecified severe protein-calorie malnutrition; Z68.1 Body mass index [BMI] 19.9 or less, adult; E87.0 Hyperosmolality and hypernatremia; M19.90 Unspecified osteoarthritis, unspecified site; M54.50 Low back pain, unspecified; G89.29 Other chronic pain; M35.3 Polymyalgia rheumatica; J43.9 Emphysema, unspecified; R26.89 Other abnormalities of gait and mobility; L60.0 Ingrowing nail; Z79.899 Other long term (current) drug therapy; Z79.52 Long term (current) use of systemic steroids; R11.2 Nausea with vomiting, unspecified; R00.0 Tachycardia, unspecified; I34.0 Nonrheumatic mitral (valve) insufficiency; D63.8 Anemia in other chronic diseases classified elsewhere; I95.89 Other hypotension; E83.42 Hypomagnesemia; I11.0 Hypertensive heart disease with heart failure; K59.00 Constipation, unspecified; T38.0X5A Adverse effect of glucocorticoids and synthetic analogues, initial encounter

== ENCOUNTER 2024-03-21 11:13 | Inpatient (IN) | payer MEDICARE ==
[~2024-03-21] VITALS: Ht 162.6 cm; Wt 36.0 kg
[~2024-03-21 11:13] MED LIST changes: +FURO20TA2 PO; +LOPR1TAB6 PO; +MIRA33506 PO; +MOM30SS2 PO; +MULT-90 PO; +SENN-52 PO
[2024-03-21] MEDS: NS 500 ML IV ONE (14:02)
[2024-03-21 14:12] LABS: BASO % 0.2 % (0.0-1.0); EOS % 0.2 % (0.0-3.0); HEMATOCRIT 37.5 % (36.0-47.0); HEMOGLOBIN 12.4 g/dl (12.0-15.5); LYMPH # 0.6 10^3/uL (1.5-5.0); LYMPH % 3.7 % (24.0-44.0); MEAN CORPUSCULAR HEMOGLOBIN 34.6 pg (27.0-33.0); MEAN CORPUSCULAR HGB CONC 33.1 g/dl (32.0-36.5); MEAN CORPUSCULAR VOLUME 104.7 fl (80.0-96.0); MONO # 0.5 10^3/uL (0.0-0.8); MONO % 3.1 % (2.0-8.0); NEUTROPHILS # 15.9 10^3/uL (1.5-8.5); NEUTROPHILS % 90.9 % (36.0-66.0); PLATELET COUNT, AUTOMATED 334 10^3/uL (150-450); RED BLOOD COUNT 3.58 10^6/uL (4.00-5.40); WHITE BLOOD COUNT 17.5 10^3/uL (4.0-10.0)
[2024-03-21] MEDS: BOOSTRIX VACCINE (TETANUS/DIPHTH/ACEL. PERTUSSIS) 0.5ML SYR IM.IMMUN ONE (14:23)
[2024-03-21] MEDS: ACETAMINOPHEN *IV* 500 MG in IV 1 EA IV ONE (14:24)
[2024-03-21 14:39] LABS: ALBUMIN 2.6 G/DL (3.2-5.2); ALKALINE PHOSPHATASE 137 U/L (46-116); ALT/SGPT 28 U/L (7.0-40); AST/SGOT 16 U/L (<34); BILIRUBIN,DIRECT 0.1 MG/DL (<0.4); BILIRUBIN,TOTAL 0.7 MG/DL (0.3-1.2); BLOOD UREA NITROGEN 32 MG/DL (9-23); CALCIUM LEVEL 8.9 MG/DL (8.3-10.6); CARBON DIOXIDE LEVEL 32 MMOL/L (20-31); CHLORIDE LEVEL 106 MMOL/L (98-107); CREATININE FOR GFR 0.85 MG/DL (0.55-1.30); GLOMERULAR FILTRATION RATE > 60.0 (>39); GLUCOSE, FASTING 82 MG/DL (74-106); POTASSIUM SERUM 4.7 MMOL/L (3.5-5.1); SODIUM LEVEL 142 MMOL/L (136-145); TOTAL PROTEIN 5.6 G/DL (5.7-8.2)
[2024-03-21 14:40] LABS: PREALBUMIN 35.9 MG/DL (10.0-40.0)
[2024-03-21 14:42] LABS: THYROID STIMULATING HORMONE 1.073 uIU/ML (0.55-4.78)
[2024-03-21 14:48] LABS: CPK CREATINE PHOSPHOKINASE 39 U/L (34-145); MB/CK RELATIVE INDEX 10.25 (< OR =4)
[2024-03-21 15:59] LABS: CK-MB VALUE MASS 3.8 NG/ML (<3.6)
[2024-03-21 16:06] LABS: MB/CK RELATIVE INDEX 5.84 (< OR =4)
[2024-03-21] MEDS ORDERED: FURO20TA2 PO (17:27)
[2024-03-21] MEDS ORDERED: METO50TA7 PO (17:29)
[2024-03-21] MEDS ORDERED: HOME MED LIST COMPLETE! XX SCH (17:30)
[2024-03-21] MEDS: cefTRIAXone SOD 1 GM in D5W MINI-BAG PLUS 50 ML IV SCH (18:54)
[2024-03-21 19:31] LABS: HEMATOCRIT 38.6 % (36.0-47.0)
[2024-03-21 19:51] LABS: C REACTIVE PROTEIN QUANTITATIV 11.6 MG/DL (<1.0)
[2024-03-21] MEDS: D5W/LR 1,000 ML IV SCH (19:54)
[2024-03-21] MEDS: predniSONE 5 MG TAB PO SCH (21:23)
[2024-03-22 06:12] LABS: HEMATOCRIT 32.4 % (36.0-47.0); HEMOGLOBIN 10.5 g/dl (12.0-15.5); MEAN CORPUSCULAR HEMOGLOBIN 34.3 pg (27.0-33.0); MEAN CORPUSCULAR HGB CONC 32.4 g/dl (32.0-36.5); MEAN CORPUSCULAR VOLUME 105.9 fl (80.0-96.0); PLATELET COUNT, AUTOMATED 278 10^3/uL (150-450); RED BLOOD COUNT 3.06 10^6/uL (4.00-5.40); WHITE BLOOD COUNT 14.6 10^3/uL (4.0-10.0)
[2024-03-22 06:45] LABS: ALKALINE PHOSPHATASE 108 U/L (46-116); ALT/SGPT 20 U/L (7.0-40); AST/SGOT 10 U/L (<34); BILIRUBIN,TOTAL 0.4 MG/DL (0.3-1.2); BLOOD UREA NITROGEN 21 MG/DL (9-23); CALCIUM LEVEL 8.2 MG/DL (8.3-10.6); CARBON DIOXIDE LEVEL 28 MMOL/L (20-31); CHLORIDE LEVEL 107 MMOL/L (98-107); CREATININE FOR GFR 0.67 MG/DL (0.55-1.30); GLOMERULAR FILTRATION RATE > 60.0 (>39); GLUCOSE, FASTING 171 MG/DL (74-106); POTASSIUM SERUM 4.6 MMOL/L (3.5-5.1); SODIUM LEVEL 141 MMOL/L (136-145); TOTAL PROTEIN 4.7 G/DL (5.7-8.2)
[2024-03-22] MEDS: OMEPRAZOLE 20MG CAP PO SCH (07:28)
[2024-03-22 08:00] VITALS: BP 133/68; TEMP 97.1; O2SAT 98
[2024-03-22] MEDS ORDERED: ENOXAPARIN 40MG/0.4ML SYRINGE (J1650 PER 10MG) SC SCH (09:00)
[2024-03-22] MEDS: HEPARIN SOD (PORCINE) 5000UNITS/ML 1ML VIAL/SYRINGE SQ SCH (09:59)
[2024-03-22] MEDS: MULTIVITAMINS/MINERALS THERAP 1 TAB PO SCH (09:59)
[2024-03-22] MEDS: METOPROLOL TART 50 MG TAB PO SCH (10:02)
[2024-03-22 14:48] VITALS: BP 104/56; TEMP 98.5; O2SAT 97
[2024-03-22 17:40] VITALS: BP 107/61; TEMP 97.2; O2SAT 90
[2024-03-22] MEDS: KETOROLAC 30 MG/ML 1ML VIAL IV ONE (20:36)
[2024-03-22 20:39] VITALS: BP 105/62; TEMP 98.1; O2SAT 92
[2024-03-22] MEDS: LIDOCAINE 5% (LIDODERM) PATCH TD SCH (22:44)
[2024-03-23 04:00] VITALS: BP 105/57; TEMP 97.7; O2SAT 90
[2024-03-23 07:58] LABS: BASO % 0.1 % (0.0-1.0); HEMATOCRIT 30.7 % (36.0-47.0); HEMOGLOBIN 9.6 g/dl (12.0-15.5); LYMPH # 0.3 10^3/uL (1.5-5.0); LYMPH % 2.2 % (24.0-44.0); MEAN CORPUSCULAR HEMOGLOBIN 33.4 pg (27.0-33.0); MEAN CORPUSCULAR HGB CONC 31.3 g/dl (32.0-36.5); MONO # 0.4 10^3/uL (0.0-0.8); MONO % 3.1 % (2.0-8.0); NEUTROPHILS # 10.7 10^3/uL (1.5-8.5); NEUTROPHILS % 93.4 % (36.0-66.0); PLATELET COUNT, AUTOMATED 270 10^3/uL (150-450); RED BLOOD COUNT 2.87 10^6/uL (4.00-5.40); WHITE BLOOD COUNT 11.5 10^3/uL (4.0-10.0)
[2024-03-23 08:21] LABS: BLOOD UREA NITROGEN 23 MG/DL (9-23); CALCIUM LEVEL 8.5 MG/DL (8.3-10.6); CARBON DIOXIDE LEVEL 29 MMOL/L (20-31); CHLORIDE LEVEL 110 MMOL/L (98-107); CREATININE FOR GFR 0.76 MG/DL (0.55-1.30); GLOMERULAR FILTRATION RATE > 60.0 (>39); GLUCOSE, FASTING 142 MG/DL (74-106); POTASSIUM SERUM 4.5 MMOL/L (3.5-5.1); SODIUM LEVEL 143 MMOL/L (136-145)
[2024-03-23] MEDS ORDERED: LIDOCAINE 5% (LIDODERM) PATCH TD SCH (09:00)
[2024-03-23 12:00] VITALS: BP 121/58; TEMP 98.1; O2SAT 94
[2024-03-23 20:11] VITALS: BP 144/83; TEMP 98.2; O2SAT 95
[2024-03-23] MEDS: ACETAMINOPHEN TAB 650MG DOSE (2X325MG) PO PRN (20:15)
[2024-03-24 04:17] VITALS: BP 107/56; TEMP 97.9; O2SAT 93
[2024-03-24 06:40] LABS: BASO % 0.1 % (0.0-1.0); HEMATOCRIT 28.9 % (36.0-47.0); LYMPH # 0.2 10^3/uL (1.5-5.0); LYMPH % 1.8 % (24.0-44.0); MEAN CORPUSCULAR HEMOGLOBIN 34.1 pg (27.0-33.0); MEAN CORPUSCULAR HGB CONC 31.1 g/dl (32.0-36.5); MEAN CORPUSCULAR VOLUME 109.5 fl (80.0-96.0); MONO # 0.4 10^3/uL (0.0-0.8); MONO % 3.6 % (2.0-8.0); NEUTROPHILS # 10.5 10^3/uL (1.5-8.5); NEUTROPHILS % 93.1 % (36.0-66.0); PLATELET COUNT, AUTOMATED 244 10^3/uL (150-450); RED BLOOD COUNT 2.64 10^6/uL (4.00-5.40); WHITE BLOOD COUNT 11.2 10^3/uL (4.0-10.0)
[2024-03-24 07:07] LABS: BLOOD UREA NITROGEN 23 MG/DL (9-23); CALCIUM LEVEL 8.4 MG/DL (8.3-10.6); CARBON DIOXIDE LEVEL 30 MMOL/L (20-31); CHLORIDE LEVEL 111 MMOL/L (98-107); CREATININE FOR GFR 0.66 MG/DL (0.55-1.30); GLOMERULAR FILTRATION RATE > 60.0 (>39); GLUCOSE, FASTING 133 MG/DL (74-106); POTASSIUM SERUM 4.5 MMOL/L (3.5-5.1); SODIUM LEVEL 145 MMOL/L (136-145)
[2024-03-24 12:00] VITALS: BP 128/52; TEMP 97.5; O2SAT 96
[2024-03-24 19:50] VITALS: BP 132/62; TEMP 98.2; O2SAT 95
[2024-03-24] MEDS: VANICREAM MOISTURIZING SKIN CREAM 113GM TUBE TOP SCH (21:18)
[2024-03-25 04:12] VITALS: BP 124/70; TEMP 98.1; O2SAT 97
[2024-03-25] MEDS: IPRATROPIUM 0.5MG/ALBUTEROL 2.5MG INH SOL UD 3ML (DUONEB) NEB PRN (04:36)
[2024-03-25 06:37] LABS: BLOOD UREA NITROGEN 22 MG/DL (9-23); CALCIUM LEVEL 8.5 MG/DL (8.3-10.6); CARBON DIOXIDE LEVEL 30 MMOL/L (20-31); CHLORIDE LEVEL 110 MMOL/L (98-107); CREATININE FOR GFR 0.73 MG/DL (0.55-1.30); GLOMERULAR FILTRATION RATE > 60.0 (>39); GLUCOSE, FASTING 136 MG/DL (74-106); POTASSIUM SERUM 4.7 MMOL/L (3.5-5.1); SODIUM LEVEL 144 MMOL/L (136-145)
[2024-03-25] MEDS: guaiFENesin ER TABLET 600 MG TAB PO SCH (10:19)
[2024-03-25 12:00] VITALS: BP 128/66; TEMP 98.6; O2SAT 95
[2024-03-25] MEDS: IPRATROPIUM 0.5MG/ALBUTEROL 2.5MG INH SOL UD 3ML (DUONEB) NEB SCH (17:37)
[2024-03-25 20:09] VITALS: BP 159/93; TEMP 98.1; O2SAT 93
[2024-03-25] MEDS: SYMBICORT 80/4.5MCG INHALER 6GM INH SCH (20:13)
[2024-03-25 23:49] VITALS: O2SAT 97
[2024-03-26 03:40] VITALS: BP 122/67; TEMP 97.7; O2SAT 95
[2024-03-26 06:55] LABS: BLOOD UREA NITROGEN 23 MG/DL (9-23); CALCIUM LEVEL 8.4 MG/DL (8.3-10.6); CARBON DIOXIDE LEVEL 30 MMOL/L (20-31); CHLORIDE LEVEL 107 MMOL/L (98-107); CREATININE FOR GFR 0.69 MG/DL (0.55-1.30); GLOMERULAR FILTRATION RATE > 60.0 (>39); GLUCOSE, FASTING 122 MG/DL (74-106); MAGNESIUM LEVEL 1.9 MG/DL (1.8-2.4); POTASSIUM SERUM 4.5 MMOL/L (3.5-5.1); SODIUM LEVEL 141 MMOL/L (136-145)
[2024-03-26] MEDS: LACTOBACILLUS ACIDOPHILUS CAP (BACID) PO SCH (08:20)
[2024-03-26] MEDS: CEFDINIR 300 MG CAP (OMNICEF) PO SCH (08:29)
[2024-03-26] MEDS: DOXYCYCLINE HYCLATE 100MG TABLET PO SCH (08:29)
[2024-03-26 20:00] VITALS: BP 139/86; TEMP 97.5; O2SAT 94
[2024-03-27 04:00] VITALS: BP 131/70; TEMP 97.9; O2SAT 95
[2024-03-27 05:57] LABS: BASO % 0.2 % (0.0-1.0); HEMATOCRIT 30.1 % (36.0-47.0); HEMOGLOBIN 9.6 g/dl (12.0-15.5); LYMPH # 0.2 10^3/uL (1.5-5.0); LYMPH % 1.8 % (24.0-44.0); MEAN CORPUSCULAR HEMOGLOBIN 34.3 pg (27.0-33.0); MEAN CORPUSCULAR HGB CONC 31.9 g/dl (32.0-36.5); MEAN CORPUSCULAR VOLUME 107.5 fl (80.0-96.0); MONO # 0.4 10^3/uL (0.0-0.8); MONO % 3.3 % (2.0-8.0); NEUTROPHILS % 90.3 % (36.0-66.0); PLATELET COUNT, AUTOMATED 284 10^3/uL (150-450); WHITE BLOOD COUNT 11.1 10^3/uL (4.0-10.0)
[2024-03-27 06:21] LABS: BLOOD UREA NITROGEN 25 MG/DL (9-23); CALCIUM LEVEL 8.9 MG/DL (8.3-10.6); CARBON DIOXIDE LEVEL 28 MMOL/L (20-31); CHLORIDE LEVEL 109 MMOL/L (98-107); CREATININE FOR GFR 0.65 MG/DL (0.55-1.30); GLOMERULAR FILTRATION RATE > 60.0 (>39); GLUCOSE, FASTING 153 MG/DL (74-106); POTASSIUM SERUM 4.5 MMOL/L (3.5-5.1); SODIUM LEVEL 142 MMOL/L (136-145)
[2024-03-27 12:00] VITALS: BP 156/82; TEMP 97.9; O2SAT 95
[2024-03-27 19:53] VITALS: BP 131/81; TEMP 97.2; O2SAT 91
[2024-03-28 04:32] VITALS: BP 137/80; TEMP 97.7; O2SAT 96
[2024-03-28 07:20] LABS: BLOOD UREA NITROGEN 29 MG/DL (9-23); CALCIUM LEVEL 8.7 MG/DL (8.3-10.6); CARBON DIOXIDE LEVEL 28 MMOL/L (20-31); CHLORIDE LEVEL 109 MMOL/L (98-107); CREATININE FOR GFR 0.67 MG/DL (0.55-1.30); GLOMERULAR FILTRATION RATE > 60.0 (>39); GLUCOSE, FASTING 149 MG/DL (74-106); MAGNESIUM LEVEL 1.8 MG/DL (1.8-2.4); POTASSIUM SERUM 4.7 MMOL/L (3.5-5.1); SODIUM LEVEL 141 MMOL/L (136-145)
[2024-03-28 12:00] VITALS: BP 132/78; TEMP 98.2; O2SAT 96
[2024-03-28 19:41] VITALS: BP 136/93; TEMP 97.9; O2SAT 91
[2024-03-29 04:21] VITALS: BP 117/74; TEMP 97.9; O2SAT 93
[2024-03-29 07:31] LABS: BLOOD UREA NITROGEN 30 MG/DL (9-23); CALCIUM LEVEL 8.8 MG/DL (8.3-10.6); CARBON DIOXIDE LEVEL 27 MMOL/L (20-31); CHLORIDE LEVEL 110 MMOL/L (98-107); GLOMERULAR FILTRATION RATE > 60.0 (>39); GLUCOSE, FASTING 142 MG/DL (74-106); MAGNESIUM LEVEL 1.7 MG/DL (1.8-2.4); POTASSIUM SERUM 4.2 MMOL/L (3.5-5.1); SODIUM LEVEL 143 MMOL/L (136-145)
[2024-03-29 12:00] VITALS: BP 150/72; TEMP 98.6; O2SAT 90
[2024-03-29] MEDS: MAG SULF 1GM/100ML (MAG RUN) 1 GM in IV 1 EA IV SCH (17:09)
[2024-03-29] MEDS: CALCIUM/VITAMIN D 500 MG TAB PO SCH (17:17)
[2024-03-29] MEDS: VITAMIN D 1,000 INTERNATIONAL UNITS TABLET PO SCH (17:17)
[2024-03-29 20:03] VITALS: BP 159/90; TEMP 97.7; O2SAT 96
[2024-03-30 03:58] VITALS: BP 130/75; TEMP 97.3; O2SAT 94
[2024-03-30 06:17] LABS: HEMATOCRIT 32.4 % (36.0-47.0); HEMOGLOBIN 10.1 g/dl (12.0-15.5); MEAN CORPUSCULAR HGB CONC 31.2 g/dl (32.0-36.5); MEAN CORPUSCULAR VOLUME 109.1 fl (80.0-96.0); PLATELET COUNT, AUTOMATED 312 10^3/uL (150-450); RED BLOOD COUNT 2.97 10^6/uL (4.00-5.40); WHITE BLOOD COUNT 12.4 10^3/uL (4.0-10.0)
[2024-03-30 06:33] LABS: BLOOD UREA NITROGEN 26 MG/DL (9-23); CALCIUM LEVEL 8.6 MG/DL (8.3-10.6); CARBON DIOXIDE LEVEL 28 MMOL/L (20-31); CHLORIDE LEVEL 109 MMOL/L (98-107); CREATININE FOR GFR 0.61 MG/DL (0.55-1.30); GLOMERULAR FILTRATION RATE > 60.0 (>39); GLUCOSE, FASTING 164 MG/DL (74-106); MAGNESIUM LEVEL 2.3 MG/DL (1.8-2.4); POTASSIUM SERUM 5.2 MMOL/L (3.5-5.1); SODIUM LEVEL 141 MMOL/L (136-145)
[2024-03-30 07:15] LABS: ATYPICAL LYMPH 1 % (0-5); HYPOCHROMASIA 1+; LYMPHOCYTES 1 % (16-44); MONOCYTES 4 % (0-5); NEUTROPHILS 94 % (28-66); PLATELET ESTIMATE NORMAL (NORMAL)
[2024-03-30 07:16] LABS: ANISOCYTOSIS 1+; POLYCHROMASIA 1+
[2024-03-30] MEDS: CYANOCOBALAMIN 500 MCG TAB PO SCH (08:08)
[2024-03-30 11:58] VITALS: BP 126/65; TEMP 98.1; O2SAT 96
[2024-03-30 20:00] VITALS: BP 138/81; TEMP 97.9; O2SAT 91
[2024-03-31 04:00] VITALS: BP 140/74; TEMP 98; O2SAT 92
[2024-03-31 07:21] LABS: BLOOD UREA NITROGEN 27 MG/DL (9-23); CALCIUM LEVEL 8.8 MG/DL (8.3-10.6); CARBON DIOXIDE LEVEL 29 MMOL/L (20-31); CHLORIDE LEVEL 107 MMOL/L (98-107); CREATININE FOR GFR 0.68 MG/DL (0.55-1.30); GLOMERULAR FILTRATION RATE > 60.0 (>39); GLUCOSE, FASTING 141 MG/DL (74-106); POTASSIUM SERUM 5.6 MMOL/L (3.5-5.1); SODIUM LEVEL 139 MMOL/L (136-145)
[2024-03-31] MEDS: FUROSEMIDE 20 MG TAB PO SCH (08:54)
[2024-03-31] MEDS: PATIROMER SORBITEX CALCIUM 8.4 GM POWDER PACKET (VELTASSA) PO ONE (11:46)
[2024-03-31 12:00] VITALS: BP 157/86; TEMP 98.1; O2SAT 94
[2024-03-31 17:56] LABS: BLOOD UREA NITROGEN 28 MG/DL (9-23); CALCIUM LEVEL 8.9 MG/DL (8.3-10.6); CARBON DIOXIDE LEVEL 28 MMOL/L (20-31); CHLORIDE LEVEL 103 MMOL/L (98-107); CREATININE FOR GFR 0.73 MG/DL (0.55-1.30); GLOMERULAR FILTRATION RATE > 60.0 (>39); GLUCOSE, FASTING 96 MG/DL (74-106); POTASSIUM SERUM 4.6 MMOL/L (3.5-5.1); SODIUM LEVEL 138 MMOL/L (136-145)
[2024-03-31 20:00] VITALS: BP 140/77; TEMP 97.9; O2SAT 92
[2024-04-01 04:00] VITALS: BP 128/69; TEMP 97.7; O2SAT 96
[2024-04-01 06:47] LABS: BLOOD UREA NITROGEN 31 MG/DL (9-23); CALCIUM LEVEL 9.1 MG/DL (8.3-10.6); CARBON DIOXIDE LEVEL 27 MMOL/L (20-31); CHLORIDE LEVEL 106 MMOL/L (98-107); CREATININE FOR GFR 0.75 MG/DL (0.55-1.30); GLOMERULAR FILTRATION RATE > 60.0 (>39); GLUCOSE, FASTING 150 MG/DL (74-106); POTASSIUM SERUM 4.6 MMOL/L (3.5-5.1); SODIUM LEVEL 140 MMOL/L (136-145)
[2024-04-01 12:00] VITALS: BP 129/76; TEMP 97.9; O2SAT 97
[2024-04-01 19:33] VITALS: BP 127/86; TEMP 98.1; O2SAT 92
[2024-04-02 03:31] VITALS: BP 139/73; TEMP 98.1; O2SAT 96
[2024-04-02 12:00] VITALS: BP 137/74; TEMP 98.1; O2SAT 95
[2024-04-02 20:50] VITALS: BP 142/78; TEMP 98.1; O2SAT 95
[2024-04-03 03:41] VITALS: BP 121/69; TEMP 97; O2SAT 99
[2024-04-03 06:02] LABS: HEMATOCRIT 32.1 % (36.0-47.0); HEMOGLOBIN 10.3 g/dl (12.0-15.5); MEAN CORPUSCULAR HEMOGLOBIN 34.6 pg (27.0-33.0); MEAN CORPUSCULAR HGB CONC 32.1 g/dl (32.0-36.5); MEAN CORPUSCULAR VOLUME 107.7 fl (80.0-96.0); PLATELET COUNT, AUTOMATED 306 10^3/uL (150-450); RED BLOOD COUNT 2.98 10^6/uL (4.00-5.40); WHITE BLOOD COUNT 14.3 10^3/uL (4.0-10.0)
[2024-04-03 06:25] LABS: BLOOD UREA NITROGEN 32 MG/DL (9-23); CALCIUM LEVEL 8.8 MG/DL (8.3-10.6); CARBON DIOXIDE LEVEL 28 MMOL/L (20-31); CHLORIDE LEVEL 106 MMOL/L (98-107); CREATININE FOR GFR 0.84 MG/DL (0.55-1.30); GLOMERULAR FILTRATION RATE > 60.0 (>39); GLUCOSE, FASTING 125 MG/DL (74-106); POTASSIUM SERUM 4.6 MMOL/L (3.5-5.1); SODIUM LEVEL 139 MMOL/L (136-145)
[2024-04-03 07:10] LABS: ATYPICAL LYMPH 1 % (0-5); LYMPHOCYTES 5 % (16-44); MONOCYTES 2 % (0-5); NEUTROPHILS 90 % (28-66)
[2024-04-03 07:11] LABS: ANISOCYTOSIS 1+; PLATELET ESTIMATE NORMAL (NORMAL)
[2024-04-03 09:07] LABS: MAGNESIUM LEVEL 1.9 MG/DL (1.8-2.4)
[2024-04-03 12:00] VITALS: BP 159/80; TEMP 98.6; O2SAT 95
[2024-04-03 19:50] VITALS: BP 152/84; TEMP 97.9; O2SAT 94
[2024-04-04 04:00] VITALS: BP 122/66; TEMP 97.7; O2SAT 98
[2024-04-04 07:57] VITALS: O2SAT 96; O2SAT 98
[2024-04-04 13:00] VITALS: BP 120/64; TEMP 98.1; O2SAT 96
[2024-04-04 20:30] VITALS: BP 140/83; TEMP 97.9; O2SAT 94
[2024-04-05 03:30] VITALS: BP 124/66; TEMP 98.1; O2SAT 96
[2024-04-05 12:00] VITALS: BP 149/68; TEMP 98.6; O2SAT 9
[2024-04-05 20:28] VITALS: BP 142/85; TEMP 98.2; O2SAT 90
[2024-04-06 04:06] VITALS: TEMP 98.1; O2SAT 95
[2024-04-06 06:29] LABS: BASO # 0.1 10^3/uL (0.0-0.2); BASO % 0.6 % (0.0-1.0); EOS % 0.1 % (0.0-3.0); HEMATOCRIT 33.9 % (36.0-47.0); HEMOGLOBIN 10.9 g/dl (12.0-15.5); LYMPH # 0.3 10^3/uL (1.5-5.0); MEAN CORPUSCULAR HEMOGLOBIN 34.2 pg (27.0-33.0); MEAN CORPUSCULAR HGB CONC 32.2 g/dl (32.0-36.5); MEAN CORPUSCULAR VOLUME 106.3 fl (80.0-96.0); MONO # 0.6 10^3/uL (0.0-0.8); MONO % 5.2 % (2.0-8.0); NEUTROPHILS # 9.4 10^3/uL (1.5-8.5); NEUTROPHILS % 86.1 % (36.0-66.0); PLATELET COUNT, AUTOMATED 331 10^3/uL (150-450); RED BLOOD COUNT 3.19 10^6/uL (4.00-5.40); WHITE BLOOD COUNT 10.9 10^3/uL (4.0-10.0)
[2024-04-06 06:58] LABS: ALBUMIN 2.6 G/DL (3.2-5.2); ALKALINE PHOSPHATASE 177 U/L (46-116); ALT/SGPT 20 U/L (7.0-40); AST/SGOT 10 U/L (<34); BILIRUBIN,TOTAL 0.4 MG/DL (0.3-1.2); BLOOD UREA NITROGEN 32 MG/DL (9-23); CALCIUM LEVEL 9.2 MG/DL (8.3-10.6); CARBON DIOXIDE LEVEL 28 MMOL/L (20-31); CHLORIDE LEVEL 104 MMOL/L (98-107); CREATININE FOR GFR 0.91 MG/DL (0.55-1.30); GLOMERULAR FILTRATION RATE > 60.0 (>39); GLUCOSE, FASTING 132 MG/DL (74-106); POTASSIUM SERUM 4.3 MMOL/L (3.5-5.1); SODIUM LEVEL 137 MMOL/L (136-145); TOTAL PROTEIN 5.4 G/DL (5.7-8.2)
[2024-04-06 07:27] VITALS: BP 138/70
[2024-04-06] MEDS ORDERED: CALCD50TA PO (07:29)
[2024-04-06] MEDS ORDERED: RISATAB3 PO (07:29)
[2024-04-06] MEDS ORDERED: VITAD1000T PO (07:29)
[2024-04-06] MEDS ORDERED: VITA500T40 PO (07:29)
[2024-04-06] MEDS ORDERED: VANI1CRE5 TOP (07:29)
[2024-04-06] MEDS ORDERED: LIDO5TD TD (07:29)
[2024-04-06 07:35] VITALS: BP 138/70
[2024-04-06 12:00] VITALS: BP 145/87; TEMP 97.7; O2SAT 96
== END 2024-04-06 15:26 | DRG 559 ==
LOC: EDBD 11:13 → M ED 11:13 → M ED INP 17:24 → M MSPAV 03-22 17:38
PROVIDERS: ADMIT Hospitalist; ATTEND Hospitalist
DX: S22.43XD Multiple fractures of ribs, bilateral, subsequent encounter for fracture with routine healing (principal); E43 Unspecified severe protein-calorie malnutrition; J18.9 Pneumonia, unspecified organism; I50.22 Chronic systolic (congestive) heart failure; J98.11 Atelectasis; J44.0 Chronic obstructive pulmonary disease with (acute) lower respiratory infection; Z66 Do not resuscitate; I11.0 Hypertensive heart disease with heart failure; M35.3 Polymyalgia rheumatica; D63.8 Anemia in other chronic diseases classified elsewhere; D53.9 Nutritional anemia, unspecified; M81.0 Age-related osteoporosis without current pathological fracture; K21.9 Gastro-esophageal reflux disease without esophagitis; M19.90 Unspecified osteoarthritis, unspecified site; M54.9 Dorsalgia, unspecified; G89.29 Other chronic pain; Z79.52 Long term (current) use of systemic steroids; Z79.899 Other long term (current) drug therapy; W19.XXXA Unspecified fall, initial encounter; Y92.009 Unspecified place in unspecified non-institutional (private) residence as the place of occurrence of the external cause; Y93.9 Activity, unspecified; R07.89 Other chest pain